=== PATIENT | male | born 1955 | race Caucasian/White ===

== ENCOUNTER 2016-12-22 17:15 | Outpatient (CLI) ==
[2013-05-13 01:09] VITALS: TEMP 97.2
[2015-10-17 08:59] VITALS: BMI 22.9
--- NOTE | 2016-12-22 17:49 | DI ---
Examination: Two radiographic images of the chest. Comparison: 08/01/2011. Reason for study: Chronic obstructive pulmonary disease and cough. FINDINGS: No pneumothorax, pleural effusion, or focal consolidation. The heart is not enlarged. T here is mild degenerative disease in the thoracic spine. Impression: No acute cardiopulmonary findings.
== END 2016-12-22 17:16 | disposition home or self-care (01) ==
LOC: RAD 17:15
PROVIDERS: ATTEND Internal Medicine
DX: J44.9 Chronic obstructive pulmonary disease, unspecified (principal); R05 Cough

== ENCOUNTER 2017-01-05 07:01 | Emergency (ER) ==
[2017-01-05 07:11] VITALS: BP 145/88; TEMP 98; BMI 26.6
[2017-01-05] MEDS ORDERED: TETRACAINE 0.5% UNIT-DOSE OP STA (07:15)
[2017-01-05] MEDS ORDERED: EYE-STREAM OP STA (07:15)
--- NOTE | 2017-01-05 07:24 | ED.PDOC ---
General ED Provider: Dr. PONCHO CRENSHAW Chief Complaint: Eye Problem Stated Complaint: Patient states that while he was grinding metal 2 days ago, he felt like a piece of metal got into left eye. He now eyelid red and painful with sensitivty to light. Time Seen by Physician: 07:16 Mode of Arrival: Walk-In Information Source: Patient Exam Limitations: No limitations Primary Care Provider: OSCAR MOHAMUD Nursing and Triage Documentation Reviewed and Agree: Yes EENT Complaint Exam - Eye Complaint/Exam Onset/Duration: 2 days Symptoms Are: Still present Timing: Constant Initial Severity: Moderate Current Severity: Severe Location: Right Character: Reports: Sharp, Throbbing, Foreign body sensation Aggravating: Reports: Light Alleviating: Reports: None Associated Signs and Symptoms: Reports: Photophobia, Clear drainage Related History: Reports: Environmental Eye Surgical History: Reports: None Penetrating Injury Risk Factors: Grinding Globe Rupture Risk Factors: None Acute Glaucoma Risk Factors: None Optic Artery Occlusion Risk Factors: None Visual Acuity Right Eye: 20/30 Visual Acuity Left Eye: 20/25 Visual Field: Normal Extraocular Movement: Normal Orbit Findings: Normal Globe Findings: Intact Lid Findings: Normal Conjunctival Findings: Red Corneal Findings: Clear Fluorescein Uptake: Yes (3 o'clock position area of foreing body removeal ) Slit Lamp Used: No Eye Picture: 1 - metalic foriegn body removed Differential Diagnoses: Foreign Body Review of Systems - Review Of Systems Constitutional: Reports: No symptoms Eyes: Reports: Blurred vision, Drainage, Foreign body sensation Ears, Nose, Mouth, Throat: Reports: No symptoms Respiratory: Reports: No symptoms Cardiac: Reports: No symptoms GI: Reports: No symptoms : Reports: No symptoms Musculoskeletal: Reports: No symptoms Skin: Reports: No symptoms Neurological: Reports: No symptoms Endocrine: Reports: No symptoms Hematologic/Lymphatic: Reports: No symptoms All Other Systems: Reviewed and Negative Past Medical History - Past Medical History Endocrine: Reports: None Cardiovascular: Reports: None Respiratory: Reports: None Hematological: Reports: None Gastrointestinal: Reports: None Genitourinary: Reports: None Neuro/Psych: Reports: None Musculoskeletal: Reports: Arthritis, Back Pain Cancer: Reports: None Other Pertinent Past Medical History: Back, Arthritis, Herniated disc. - Surgical History General Surgical History: Reports: Appendectomy - Family History Family History: Reports: None - Social History Smoking Status: Current every day smoker, Heavy tobacco smoker Hx Substance Use: No Alcohol Screening: None Physical Exam - Physical Exam Appearance: Ill-appearing Ill-appearing: Mild Pain Distress: Moderate Eyes: AMY, EOMI, Conjunctiva clear (left ), Conjunctiva inflammed (on the right ) Neck: Supple Respiratory: Airway patent, Breath sounds clear, Breath sounds equal, Respirations nonlabored Cardiovascular: RRR, Pulses normal, No rub, No murmur GI/: Soft, Nontender, No masses, Bowel sounds normal, No Organomegaly Musculoskeletal: Normal strength, ROM intact, No edema, No calf tenderness Skin: Warm Neurological: Sensation intact, Motor intact, Reflexes intact, Cranial nerves intact, Alert, Oriented Psychiatric: Affect appropriate, Mood appropriate Procedures - Eye Procedure Location of Foreign Body: right eye Tetracaine Drops Administered: Yes (2 ) Eye FB Removal: Removed with cotton swab, Removed with needle Depth: Imbedded Foreign Body Completely Removed: Yes Eye Irrigated: Yes Progress: Tolerated procedure well Critical Care Note - Critical Care Note Total Time (mins): 0 Course - Course Orders, Labs, Meds: Orders Category Date Time Status Balanced Salt Solution [Eye-Stream] MEDS 01/05/17 07:15 Stat 1 bottle OP ONCE STA Tetracaine HCl/Pf [Tetracaine 0.5% Unit-Dose] MEDS 01/05/17 07:15 Stat 2 drop OP ONCE STA Medications Discontinued Medications Generic Name Dose Route Start Last Admin Trade Name Memo PRN Reason Stop Dose Admin Eye Irrigation Solution 1 bottle 01/05/17 07:15 Eye-Stream OP 01/05/17 07:16 ONCE STA Tetracaine HCl 2 drop 01/05/17 07:15 Tetracaine 0.5% Unit-Dose OP 01/05/17 07:16 ONCE STA Vital Signs: Temp Pulse Resp BP Pulse Ox 01/05/17 07:02 98 F 90 20 145/88 H 92 L Departure - Departure Time of Disposition: 07:32 Disposition: HOME SELF-CARE Discharge Problem: Foreign body of right eye Qualifiers: Encounter type: initial encounter Qualifier Code: (T15.91XA) Foreign body on external eye, part unspecified, right eye, initial encounter Instructions: Eye Foreign Body (ED) Condition: Good Pt referred to PMD for follow-up: No Additional Instructions: Take Motrin or Tylenol as needed for pain. Follow up with the EYE doctor in 1-2 days for reevaluation. Use eye drops as prescribed Return worse. 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
[2017-01-05] MEDS ORDERED: FLUORETS OP STA (07:46)
== END 2017-01-05 07:49 | disposition home or self-care (01) ==
LOC: ED 07:01
DX: T15.91XA Foreign body on external eye, part unspecified, right eye, initial encounter (principal); W45.8XXA Other foreign body or object entering through skin, initial encounter; W20.8XXA Other cause of strike by thrown, projected or falling object, initial encounter; F17.210 Nicotine dependence, cigarettes, uncomplicated
CPT/HCPCS: 99283

== ENCOUNTER 2018-03-03 16:22 | Emergency (ER) | payer OTHER ==
[2018-03-03 16:26] VITALS: BP 134/83; TEMP 96.8; BMI 25.1
[2018-03-03] MEDS ORDERED: LIDOCAINE HCL 1% SDV SUBCUT STA (16:44)
[2018-03-03] MEDS ORDERED: TENIVAC IM ONE (16:45)
--- NOTE | 2018-03-03 16:58 | ED.PDOC ---
General ED Provider: Dr. DAREK KABA Chief Complaint: Hand Laceration Stated Complaint: right hand laceration Time Seen by Physician: 16:22 Mode of Arrival: Walk-In Information Source: Patient Exam Limitations: No limitations Primary Care Provider: OSCAR MOHAMUD Nursing and Triage Documentation Reviewed and Agree: Yes Reviewed sepsis parameters & appropriate labs ordered?: No System Inflammatory Response Syndrome: Not Applicable Sepsis Protocol: For patient's 13 years and over: Temp is 96.8 and below OR 101 and greater Pulse >90 BPM Resp >20/minute Acutely Altered Mental Status Are patient's symptoms suggestive of a new infection, such as: -Pneumonia -Skin, Soft Tissue -Endocarditis -UTI -Bone, Joint Infection -Implantable Device -Acute Abdominal Infection -Wound Infection -Meningitis -Blood Stream Catheter Infection -Unknown System Inflammatory Response Syndrome: Not Applicable Skin Complaint Exam - Lac/Torso/Upper Ext. Complaint/Exam Location of Injury: Right (hand) Mechanism of Injury: Laceration Onset/Duration: 30 min ago Symptoms Are: Still present Initial Severity: Mild Current Severity: Mild Aggravating: None Alleviating: None Associated Signs and Symptoms: Denies: Fever, Chills, Erythema, Numbness, Tingling Related History: Denies: Anticoagulant use Differential Diagnoses: Laceration Review of Systems - Review Of Systems Constitutional: Reports: No symptoms Eyes: Reports: No symptoms Ears, Nose, Mouth, Throat: Reports: No symptoms Respiratory: Reports: No symptoms Cardiac: Reports: No symptoms GI: Reports: No symptoms : Reports: No symptoms Musculoskeletal: Reports: No symptoms Skin: Reports: Other (laceration hand see photos) Neurological: Reports: No symptoms Endocrine: Reports: No symptoms Hematologic/Lymphatic: Reports: No symptoms All Other Systems: Reviewed and Negative Past Medical History - Past Medical History Previously Healthy: Yes Endocrine: Reports: None Cardiovascular: Reports: None Respiratory: Reports: None Hematological: Reports: None Gastrointestinal: Reports: None Genitourinary: Reports: None Neuro/Psych: Reports: None Musculoskeletal: Reports: Arthritis, Back Pain Cancer: Reports: None Other Pertinent Past Medical History: Back, Arthritis, Herniated disc. - Surgical History General Surgical History: Reports: Appendectomy - Family History Family History: Reports: None - Social History Smoking Status: Current every day smoker, Heavy tobacco smoker Hx Substance Use: No Alcohol Screening: None - Immunizations Tetanus Shot up to Date: No Physical Exam - Physical Exam Appearance: Well-appearing, No pain distress, Well-nourished Eyes: AMY, EOMI, Conjunctiva clear ENT: Ears normal, Nose normal, Oropharynx normal Respiratory: Airway patent, Breath sounds clear, Breath sounds equal, Respirations nonlabored Cardiovascular: RRR, Pulses normal, No rub, No murmur GI/: Soft, Nontender, No masses, Bowel sounds normal, No Organomegaly Musculoskeletal: Normal strength, ROM intact, No edema, No calf tenderness Skin: Warm, Dry (laceration right hand see photos) Neurological: Sensation intact, Motor intact, Reflexes intact, Cranial nerves intact, Alert, Oriented Psychiatric: Affect appropriate, Mood appropriate Procedures - Laceration/Wound Repair No standard instances Wound Description: Linear Wound Length (cm): 4 cm Wound Width: 1 mm Wound Depth: 2mm Wound Explored: Clean Wound Irrigated: No Wound Prep: Saline Anesthesia: Lidocaine Wound Debrided: Minimal Wound Repaired With: Sutures Suture Size and Type: 8 Number of Sutures: 1 Number of Noe: 0 Critical Care Note - Critical Care Note Total Time (mins): 0 Course - Course Orders, Labs, Meds: Orders Category Date Time Status Lidocaine HCl/Pf [Lidocaine HCl 1% Sdv] MEDS 03/03/18 16:44 Stat 5 ml SUBCUT ONCE STA Tetanus and Diphtheria Tox/Pf [Tenivac] MEDS 03/03/18 16:45 Once 0.5 ml IM .ONCE ONE Medications Discontinued Medications Generic Name Dose Route Start Last Admin Trade Name Freq PRN Reason Stop Dose Admin Lidocaine HCl 5 ml 03/03/18 16:44 03/03/18 16:49 Lidocaine Hcl 1% Sdv SUBCUT 03/03/18 16:45 5 ml ONCE STA Administration Tetanus/Diphtheria Toxoids Adsorbed 0.5 ml 03/03/18 16:45 Tenivac IM 03/03/18 16:46 .ONCE ONE Vital Signs: Temp Pulse Resp BP Pulse Ox 03/03/18 16:22 96.8 F L 93 H 18 134/83 93 L Departure - Departure Time of Disposition: 16:57 Disposition: HOME SELF-CARE Discharge Problem: Hand laceration Qualifiers: Encounter type: initial encounter Foreign body presence: without foreign body Laterality: right Qualified Code(s): S61.411A - Laceration without foreign body of right hand, initial encounter Instructions: Laceration (ED) Condition: Good Pt referred to PMD for follow-up: Yes IPMP verified?: No Allergies/Adverse Reactions: Allergies No Known Allergies Allergy (Verified 03/03/18 16:26) Home Medications: Ambulatory Orders Cholesterol Pill mg PO DAILY 03/03/18
== END 2018-03-03 17:16 | disposition home or self-care (01) ==
LOC: ED 16:22
DX: S61.411A Laceration without foreign body of right hand, initial encounter (principal); W45.8XXA Other foreign body or object entering through skin, initial encounter; F17.210 Nicotine dependence, cigarettes, uncomplicated
CPT/HCPCS: 90471; 90714; 99283

== ENCOUNTER 2018-05-21 06:37 | Outpatient (CLI) | payer OTHER ==
[2013-05-13 01:09] VITALS: TEMP 97.2
--- NOTE | 2018-05-21 09:56 | DI ---
EXAM: PA and lateral views of the chest HISTORY: Smoking history with chronic obstructive pulmonary disease COMPARISON: Chest x-ray 12/22/2016 and 08/01/2011 FINDINGS: The cardiomediastinal silhouette is normal. There is no pneumothorax or pleural effusion. The lungs are mildly hyperinflated. There is no consolidation, nodule or mass. The osseous struct ures are stable with multilevel degenerative change. IMPRESSION: Hyperinflated lungs suggestive of chronic obstructive pulmonary disease with no acute co nsolidation.
--- NOTE | 2018-05-22 12:34 | ECHO2D ---
Date of Exam: 05/21/18 Ordering Physician: DR. OSCAR MOHAMUD Room #: OP Reason for Echo: SOB, DILATED AORTIC ROOT, HYPOKINETIC LEFT VENTRICLE M-Mode Normal Adult Results LV Dimensions Normal Adult Results AoV Opening excursions >1.6 >1.6 LVEDD-base- 3.5-5.8 5.1 Ao root dimensions 2.0-3.7 4.4 LVESD-base- 3.1-4.6 L. Atrium dimensions 1.9-3.8 3.3 Post. Wall thickness 0.8-1.1 1.4 IV septum (thickness) 0.7-1.2 1.3 Post. Wall excursion 0.72-1.3 NORMAL Septal motion NORMAL Systolic motion R. Ventricular cavity 1.5-2.0 NORMAL LVEF 60% 58% Paradoxical septal wall motion NORMAL 2-D : 2-D M Mode Echocardiogram was performed using apical four chamber and left parasternal long and short axis views. Mitral, tricuspid and aortic valves appear to be normal. Contractility of the left ventricle seems to be normal, so is the cavity size. Left atrial cavity size appears to be normal. Dilated aortic root. There is no pericardial effusion. There is no thrombus noted in the left ventricular or left aortic cavity. No mitral valve prolapse noted. Color Flow: Mild to moderate aortic regurgitation M-MODE: MV: NORMAL AV: NORMAL TV: NORMAL PV: CHAMBER SIZE: NORMAL WALL MOTION: NORMAL PERICARDIUM: NORMAL INTERPRETATION: 1. DILATED AORTIC ROOT 2. LEFT VENTRICULAR HYPERTROPHY 3. NORMAL LEFT VENTRICULAR CONTRACTILITY 4. MILD TO MODERATE AORTIC REGURGITATION MTDD
== END 2018-05-21 06:38 | disposition home or self-care (01) ==
LOC: CAR 06:37
PROVIDERS: ATTEND Internal Medicine
DX: R06.02 Shortness of breath (principal); I50.1 Left ventricular failure, unspecified; I77.819 Aortic ectasia, unspecified site; J44.9 Chronic obstructive pulmonary disease, unspecified; Z87.891 Personal history of nicotine dependence

== ENCOUNTER 2022-06-10 13:23 | Inpatient (IN) ==
[2022-06-10] MEDS ORDERED: VENTOLIN HFA (PER PUFF-WITH SPACER) IH ONE (13:38)
[2022-06-10] MEDS ORDERED: SOLU-MEDROL 125 MG IM ONE (13:38)
--- NOTE | 2022-06-10 13:43 | ED.PDOC ---
General ED Provider: Dr. GALA FINK MD Chief Complaint: Cough Stated Complaint: mild to mod off and on dry cough for 2 days, no fever, +aches, no rash, hx smoking and pneumonia, no hx covid vaccine or RI or dm Time Seen by Provider: 06/10/22 13:28 Mode of Arrival: Walk-In Information Source: Patient Primary Care Provider: OSCAR MOHAMUD Nursing and Triage Documentation Reviewed and Agree: Yes Does patient meet sepsis criteria?: No System Inflammatory Response Syndrome: Not Applicable Sepsis Protocol: For patient's 13 years and over: Temp is 96.8 and below OR 101 and greater Pulse >90 BPM Resp >20/minute Acutely Altered Mental Status Are patient's symptoms suggestive of a new infection, such as: -Pneumonia -Skin, Soft Tissue -Endocarditis -UTI -Bone, Joint Infection -Implantable Device -Acute Abdominal Infection -Wound Infection -Meningitis -Blood Stream Catheter Infection -Unknown Review of Systems Review Of Systems Constitutional: Reports Malaise; Denies Fever Eyes: Denies Vision change Ears, Nose, Mouth, Throat: Denies Throat pain Respiratory: Reports Cough and Short of air; Denies Stridor Cardiac: Denies Chest pain GI: Denies Abdominal pain or Vomiting : Denies Dysuria Musculoskeletal: Denies Neck pain Skin: Denies Rash or Cyanosis Neurological: Denies Cognitive dysfunction All Other Systems: [facility] Social History Smoking and tobacco status: Current every day smoker Physical Exam Physical Exam Appearance: Reports No pain distress Ill-appearing: None Pain Distress: None Eyes: Reports AMY, EOMI and Conjunctiva clear ENT: Reports Oropharynx normal Neck: Supple Respiratory: Reports Airway patent and Wheezes Cardiovascular: Reports RRR GI/: Reports Soft and Nontender Musculoskeletal: Reports ROM intact Skin: Reports Warm and Dry Neurological: Reports Alert and Oriented Psychiatric: Reports Affect appropriate Interpretation Radiology Interpretation Radiology Interpretation By: Radiologist Radiology Results: No acute changes Exam Interpreted: CXR EKG Interpretation Time of EKG #1: 14:57 Rate: Normal Rhythm: Sinus Interpretation: no stemi Critical Care Note Critical Care Note Total Critical Care Time (mins): 0 Course Course Hematology/Chemistry: 06/10/22 13:52 06/10/22 13:52 Orders, Labs, Meds: Lab Review 06/10/22 06/10/22 06/10/22 13:30 13:30 13:52 WBC 11.03 H RBC 4.69 L Hgb 14.2 Hct 44.0 MCV 93.8 MCH 30.3 MCHC 32.3 RDW Coeff of Petar 13.6 Plt Count 274 Immature Gran % (Auto) 0.4 Neut % (Auto) 75.1 Lymph % (Auto) 13.2 [place] % (Auto) 10.4 H Eos % (Auto) 0.7 Baso % (Auto) 0.2 Neut # (Auto) 8.3 H Lymph # (Auto) 1.5 [place] # (Auto) 1.2 Eos # (Auto) 0.1 Baso # (Auto) 0.0 Immature Gran # (Auto) 0.0 Puncture Site Base Excess O2 Saturation ABG pH ABG pCO2 ABG pO2 ABG HCO3 ABG Total CO2 Domenico Test Hemoglobin Oxyhemoglobin Carboxyhemoglobin Total Hemoglobin FiO2 % Sodium Potassium Chloride Carbon Dioxide Anion Gap BUN Creatinine Estimated GFR (MDRD) BUN/Creatinine Ratio Glucose Lactic Acid Calcium Total Bilirubin AST ALT Alkaline Phosphatase Total Creatine Kinase Troponin I NT-Pro-B Natriuret Pep Total Protein Albumin Globulin Albumin/Globulin Ratio Influ A Molecular Assay Negative by naat Influ B Molecular Assay Negative by naat SARS CoV-2 RNA Rapid EDWIN Negative 06/10/22 06/10/22 06/10/22 13:52 13:52 14:00 WBC RBC Hgb Hct MCV MCH MCHC RDW Coeff of Petar Plt Count Immature Gran % (Auto) Neut % (Auto) Lymph % (Auto) [place] % (Auto) Eos % (Auto) Baso % (Auto) Neut # (Auto) Lymph # (Auto) [place] # (Auto) Eos # (Auto) Baso # (Auto) Immature Gran # (Auto) Puncture Site Rr Base Excess 6.6 H O2 Saturation 89.3 L ABG pH 7.42 ABG pCO2 48.0 H ABG pO2 56.0 L* ABG HCO3 31.1 H ABG Total CO2 32.6 H Domenico Test Pos Hemoglobin 1.1 Oxyhemoglobin 87.6 L Carboxyhemoglobin 4.8 H Total Hemoglobin 14.4 FiO2 % 21.0 Sodium 140.6 Potassium 4.73 Chloride 102.6 Carbon Dioxide 33.5 H Anion Gap 9.23 BUN 14.3 Creatinine 0.86 Estimated GFR (MDRD) 89.00 BUN/Creatinine Ratio 16.62 Glucose 95.6 Lactic Acid 0.90 Calcium 9.12 Total Bilirubin 0.24 AST 20.0 ALT 12.3 Alkaline Phosphatase 92.3 Total Creatine Kinase 51.7 L Troponin I < 0.012 NT-Pro-B Natriuret Pep 41.000 Total Protein 7.22 Albumin 3.87 Globulin 3.35 Albumin/Globulin Ratio 1.15 Influ A Molecular Assay Influ B Molecular Assay SARS CoV-2 RNA Rapid EDWIN Orders Category Date Time Status ABG DRAW REQUEST Stat CARDIO 06/10/22 13:38 Completed EKG-(ED ONLY) Stat CARDIO 06/10/22 13:38 Completed METERED DOSE INHALATION Routine CARDIO 06/10/22 13:39 Completed OXYGEN [ED APPLY O2] .ONCE EMERGENCY 06/10/22 13:38 Active ABG COOX Stat LAB 06/10/22 14:00 Completed CBC W/ AUTO DIFF Stat LAB 06/10/22 13:52 Completed CMP [COMPREHENSIVE METABOLIC PANEL] Stat LAB 06/10/22 13:52 Completed CREATINE KINASE Stat LAB 06/10/22 13:52 Completed LACTIC ACID Stat LAB 06/10/22 13:52 Completed MOLECULAR FLU A & B [FLU A/B MOLECULAR] Stat LAB 06/10/22 13:30 Completed NT-PROBNP Stat LAB 06/10/22 13:52 Completed RAPID STREP SCREEN [MOLECULAR GROUP A STREP] Stat LAB 06/10/22 13:30 Completed SARS COV-2 RNA RAPID EDWIN Stat LAB 06/10/22 13:30 Completed TROPONIN I Stat LAB 06/10/22 13:52 Completed Albuterol Inhaler(with Spacer) [Ventolin Hfa (Per Puff- MEDS 06/10/22 13:38 Discontinued with Spacer)] 2 puff IH ONCE ONE Methylprednisolone Sod Succ/Pf [Solu-Medrol 125 mg] MEDS 06/10/22 13:38 Discontinued 125 mg IM ONCE ONE CHEST, 1V AP ONLY Stat RADS 06/10/22 14:11 Completed Medications Discontinued Medications Generic Name Dose Route Start Last Admin Trade Name Freq PRN Reason Stop Dose Admin Albuterol Sulfate 2 puff 06/10/22 13:38 06/10/22 14:18 Albuterol Sulfate (Ventolin Hfa) 18 Gm 1 Puff With Spacer IH 06/10/22 13:39 2 puff ONCE ONE Administration Methylprednisolone Sodium Succinate 125 mg 06/10/22 13:38 06/10/22 13:47 Methylprednisolone Sod Succ/Pf 125 Mg/2 Ml Vial IM 06/10/22 13:39 125 mg ONCE ONE Administration Vital Signs: Temp Pulse Resp BP Pulse Ox 06/10/22 13:26 98 F 93 H 20 122/73 86 L Discharge Plan Discharge Patient Disposition: ADMITTED INPATIENT Discharge Problem: COPD exacerbation Prescriptions: No Action atorvastatin 80 mg tablet 80 mg PO DAILY Label Comments: TAKE 1 TABLET BY MOUTH EVERY DAY Did you review [place] [employer]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
[2022-06-10 13:57] LABS: BASOPHILS % (AUTO) 0.2 % (0.0-3.0); EOSINOPHILS # (AUTO) 0.1 K/ul (0.0-0.7); EOSINOPHILS % (AUTO) 0.7 % (0.0-7.0); HEMOGLOBIN 14.2 g/dl (14.0-18.0); IMMATURE GRANULOCYTE % (AUTO) 0.4 % (0.0-5.0); LYMPHOCYTES # (AUTO) 1.5 K/uL (0.60-3.4); LYMPHOCYTES % (AUTO) 13.2 (10.0-50.0); MEAN CORPUSCULAR HEMOGLOBIN 30.3 pg (27.0-31.0); MEAN CORPUSCULAR HGB CONC 32.3 (31.8-35.4); MEAN CORPUSCULAR VOLUME 93.8 fl (80.0-94.0); MONOCYTES # (AUTO) 1.2 K/uL (0.4-2.0); MONOCYTES % (AUTO) 10.4 (0-10); NEUTROPHILS # (AUTO) 8.3 K/ul (2.0-6.9); NEUTROPHILS % (AUTO) 75.1 % (42.2-75.2); PLATELET COUNT 274 10^3/uL (140-440); RDW COEFFICIENT OF VARIATION 13.6 % (11.6-14.8); RED BLOOD COUNT 4.69 10^6/ul (4.70-6.10); WHITE BLOOD COUNT 11.03 K/ul (4.2-10.2)
[2022-06-10 14:10] LABS: ALANINE AMINOTRANSFERASE 12.3 U/L (0-50); ALBUMIN 3.87 g/dL (3.5-5.0); ALKALINE PHOSPHATASE 92.3 U/L (56-119); BILIRUBIN,TOTAL 0.24 mg/dL (0.2-1.3); BLOOD UREA NITROGEN 14.3 mg/dL (9-20); CALCIUM 9.12 mg/dL (8.4-10.2); CARBON DIOXIDE 33.5 mmol/L (22-30.0); CHLORIDE 102.6 mmol/L (98-107); CREATINE KINASE 51.7 U/L (55-170); CREATININE 0.86 mg/dL (0.60-1.10); GLUCOSE 95.6 mg/dL (74-106); POTASSIUM 4.73 mmol/L (3.5-5.1); SODIUM 140.6 mmol/L (134.5-145); TOTAL PROTEIN 7.22 g/dL (6.3-8.2)
[2022-06-10 14:27] LABS: ABG O2 HGB 87.6 % (95-100); ABG PH 7.42 (7.35-7.45); BEecf 6.6 (-2.0-3.0); COHb 4.8 (0.5-1.5); HCO3 31.1 (21-28); MetHb 1.1 (0-1.5); TCO2 32.6 (19-24); sO2 89.3 % (94-98); tHb 14.4 g/dl (11.7-17.4)
[2022-06-10 14:28] LABS: TROPONIN I < 0.012 ng/ml (0.0000-0.120)
[2022-06-10 14:30] LABS: MOLECULAR FLU A NEGATIVE BY NAAT (NEGATIVE); MOLECULAR FLU B NEGATIVE BY NAAT (NEGATIVE)
--- NOTE | 2022-06-10 14:40 | DI ---
EXAM: Chest, one-view HISTORY: Cough FINDINGS: Cardiac and mediastinal contours are normal. Pulmonary vasculature is normal. The lungs are hyperexpanded. Lungs are clear. Bony thorax is unremarkable. IMPRESSION: No acute cardiopulmonary disease Chronic obstructive pulmonary disease
[2022-06-10] MEDS: SODIUM CHLORIDE 1,000 ML IV SCH (15:35)
[2022-06-10] MEDS ORDERED: NORCO 7.5-325 PO PRN (15:54)
[2022-06-10 15:56] VITALS: BMI 22.6
[2022-06-10] MEDS ORDERED: ROCEPHIN 1 GM/50 ML D5W 1 GM/50 ML BAG IV ONE (16:43)
[2022-06-10] MEDS: DUONEB NEB SCH ×2 (17:07→23:05)
[2022-06-11] MEDS: SOLU-MEDROL 40 MG IVP SCH ×3 (00:41→22:27)
[2022-06-11] MEDS: DUONEB NEB SCH ×4 (04:55→23:15)
[2022-06-11 05:19] LABS: BASOPHILS % (AUTO) 0.1 % (0.0-3.0); HEMATOCRIT 39.9 % (42.0-52.0); HEMOGLOBIN 13.1 g/dl (14.0-18.0); IMMATURE GRANULOCYTE % (AUTO) 0.5 % (0.0-5.0); LYMPHOCYTES # (AUTO) 0.5 K/uL (0.60-3.4); MEAN CORPUSCULAR HEMOGLOBIN 30.5 pg (27.0-31.0); MEAN CORPUSCULAR HGB CONC 32.8 (31.8-35.4); MONOCYTES # (AUTO) 0.1 K/uL (0.4-2.0); MONOCYTES % (AUTO) 1.7 (0-10); NEUTROPHILS # (AUTO) 7.7 K/ul (2.0-6.9); NEUTROPHILS % (AUTO) 91.7 % (42.2-75.2); PLATELET COUNT 280 10^3/uL (140-440); RDW COEFFICIENT OF VARIATION 13.7 % (11.6-14.8); RED BLOOD COUNT 4.29 10^6/ul (4.70-6.10)
[2022-06-11 05:31] LABS: ALANINE AMINOTRANSFERASE 13.3 U/L (0-50); ALBUMIN 3.58 g/dL (3.5-5.0); ALKALINE PHOSPHATASE 82.5 U/L (56-119); CALCIUM 9.01 mg/dL (8.4-10.2); CARBON DIOXIDE 29.6 mmol/L (22-30.0); CHLORIDE 105.9 mmol/L (98-107); CREATININE 0.76 mg/dL (0.60-1.10); GLUCOSE 135.1 mg/dL (74-106); POTASSIUM 4.54 mmol/L (3.5-5.1); SODIUM 140.4 mmol/L (134.5-145); TOTAL PROTEIN 6.63 g/dL (6.3-8.2)
[2022-06-11 05:34] LABS: BILIRUBIN,TOTAL < 0.10 mg/dL (0.2-1.3)
[2022-06-11] MEDS: SODIUM CHLORIDE 1,000 ML IV SCH (05:48)
[2022-06-11] MEDS ORDERED: LEVAQUIN 750 MG/150 ML D5W 750 MG/150 ML BAG IV SCH (09:00)
--- NOTE | 2022-06-11 09:16 | PCM.PROG ---
Attending Provider: ATTENDING PROVIDER: Dr. OSCAR MOHAMUD This patient is seen with Rere Grover, Nurse Practitioner. DATE OF SERVICE: 06/11/22 SUBJECTIVE: This 66 year old /WHITE M was hospitalized 06/10/22. States he is feeling better this morning. Sating 96% on 2 liters. No fever. Blood pressure is low. Productive cough with yellow sputum.Reports had fever and chills early in the week and got progressively more short of breath. REVIEW OF SYSTEMS: CONSTITUTIONAL: No night sweats. No fatigue, malaise, lethargy. No fever or chills. HEENT: Eyes: No visual changes. No eye pain. No eye discharge. ENT: No runny nose. No epistaxis. No sinus pain. No odynophagia. No congestion. RESPIRATORY: Cough, no congestion. No hemoptysis. Shortness of breath. CARDIOVASCULAR: No angina symptoms. No CHF symptoms. No atypical chest pain for CAD. No palpitations. No orthopnea.. GASTROINTESTINAL: No abdominal pain. No nausea or vomiting. No diarrhea or constipation. No hematemesis. No hematochezia. GENITOURINARY: No urgency. No frequency. No dysuria. No hematuria. No obstruc tive symptoms. No discharge. No pain. No significant abnormal bleeding. MUSCULOSKELETAL: No musculoskeletal pain; no joint swelling. NEUROLOGICAL: Awake, alert, oriented to time, place and person. No headache. No neck pain. No syncope. No seizures. No dizziness. PSYCHIATRIC: Not anxious. No depression. No suicidal thoughts. No homicidal thoughts. SKIN: No rash. No lesions. No wounds. ENDOCRINE: No unexplained weight loss. No weight gain. HEMATOLOGIC/LYMPHATIC: No anemia. No purpura. No petechiae. No prolonged or excessive bleeding. No palpable lymph nodes. PHYSICAL EXAMINATION: GENERAL: The patient is awake, alert and oriented, sitting in bed in no distress. VITAL SIGNS: Temperature 97.9 F, Pulse 84, Respiratory Rate 16, BP 88/49, Pulse Ox 96% HEENT: Head normocephalic, atraumatic. Eyes: Extraocular muscles are intact. Pupils are equal, round and reactive to light and accommodation. Ears: No lesions. Nose appeared normal. Throat: No exudate or erythema. NECK: Supple. No JVD, no carotid bruit. No lymphadenopathy or thyromegaly. LUNGS: Severely diminished breath sounds. Clear to auscultation. Percussion note normal. Chest symmetrical. HEART: S1, S2, no S3. No murmurs. No cyanosis or clubbing. No ascites. Pulses: Dorsalis pedis and posterior tibial pulses +1 to +2 both sides. ABDOMEN: Soft. Non-tender. Bowel sounds active. No CVA tenderness. No mass felt. EXTREMITIES: No edema. Full range of motion of all extremities, equal. NEUROLOGIC: No focal deficit. Cranial nerves II through XII are grossly intact. No headache. No double vision. SKIN: Not dry. Intact. Turgor-normal. LYMPHATIC: No palpable lymph nodes/no lymphedema. MUSCULOSKELETAL: Normal joints with no swelling. Muscle tone is normal. LAB REVIEW: 06/11/22 04:50 06/11/22 04:50 06/11/22 04:50: Sodium 140.4, Potassium 4.54, Chloride 105.9, Carbon Dioxide 29.6, Anion Gap 9.44, BUN 19.0, Creatinine 0.76, Estimated GFR (MDRD) 102.00, BUN/Creatinine Ratio 25.00, Glucose 135.1 H, Calcium 9.01, Total Bilirubin < 0.10 L, AST 19.0, ALT 13.3, Alkaline Phosphatase 82.5, Total Protein 6.63, Albumin 3.58, Globulin 3.05, Albumin/Globulin Ratio 1.17 06/11/22 04:50: WBC 8.40, RBC 4.29 L, Hgb 13.1 L, Hct 39.9 L, MCV 93.0, MCH 30.5, MCHC 32.8, RDW Coeff of Petar 13.7, Plt Count 280, Immature Gran % (Auto) 0 .5, Neut % (Auto) 91.7 H, Lymph % (Auto) 6.0 L, [place] % (Auto) 1.7, Eos % (Auto) 0.0, Baso % (Auto) 0.1, Neut # (Auto) 7.7 H, Lymph # (Auto) 0.5 L, [place] # (Auto) 0.1 L, Eos # (Auto) 0.0, Baso # (Auto) 0.0, Immature Gran # (Auto) 0.0 06/11/22 04:50: Troponin I < 0.012 06/10/22 21:50: Troponin I < 0.012 06/10/22 14:00: Puncture Site Rr, Base Excess 6.6 H, O2 Saturation 89.3 L, ABG pH 7.42, ABG pCO2 48.0 H, ABG pO2 56.0 L*, ABG HCO3 31.1 H, ABG Total CO2 32.6 H , Domenico Test Pos, Hemoglobin 1.1, Oxyhemoglobin 87.6 L, Carboxyhemoglobin 4.8 H, Total Hemoglobin 14.4, FiO2 % 21.0 06/10/22 13:52: Lactic Acid 0.90 06/10/22 13:52: Sodium 140.6, Potassium 4.73, Chloride 102.6, Carbon Dioxide 33.5 H, Anion Gap 9.23, BUN 14.3, Creatinine 0.86, Estimated GFR (MDRD) 89.00, BUN/Creatinine Ratio 16.62, Glucose 95.6, Calcium 9.12, Total Bilirubin 0.24, AST 20.0, ALT 12.3, Alkaline Phosphatase 92.3, Total Creatine Kinase 51.7 L, Troponin I < 0.012, NT-Pro-B Natriuret Pep 41.000, Total Protein 7.22, Albumin 3.87, Globulin 3.35, Albumin/Globulin Ratio 1.15 06/10/22 13:52: WBC 11.03 H, RBC 4.69 L, Hgb 14.2, Hct 44.0, MCV 93.8, MCH 30.3, MCHC 32.3, RDW Coeff of Petar 13.6, Plt Count 274, Immature Gran % (Auto) 0.4, Neut % (Auto) 75.1, Lymph % (Auto) 13.2, [place] % (Auto) 10.4 H, Eos % (Auto) 0.7, Baso % (Auto) 0.2, Neut # (Auto) 8.3 H, Lymph # (Auto) 1.5, [place] # (Auto) 1.2, Eos # (Auto) 0.1, Baso # (Auto) 0.0, Immature Gran # (Auto) 0.0 06/10/22 13:30: Influ A Molecular Assay Negative by naat, Influ B Molecular Assay Negative by naat 06/10/22 13:30: SARS CoV-2 RNA Rapid EDWIN Negative ASSESSMENT: Please see below. 1. Acute respiratory failure 2. Acute COPD exacerbation 3. Hypotension 4. Dyslipidemia 5. Heavy smoker PLAN: 1. CT chest with and without 2. Respiratory panel for shortness of breath 3. Sputum Culture 4. Levaquin 500mg IV daily 5. Change Solu-Medrol 100mg Q 8 hours. 6. Repeat ABG on room air in the morning 7. Urinalysis 8. 2D echo Plan and coordination of the patient's care discussed in the presence of Electrical Cad Technician and nurse. SCRIBED BY: Bert HARPER scribed while in presence of service performed by Dr. Mohamud/Rere Grover APRN on 06/11/22 ([id number])
[2022-06-11 10:00] LABS: ABG PH 7.37 (7.35-7.45); BEecf 0.7 (-2.0-3.0); COHb 2.3 (0.5-1.5); MetHb 1.5 (0-1.5); TCO2 27.4 (19-24); sO2 87.2 % (94-98); tHb 13.4 g/dl (11.7-17.4)
[2022-06-11] MEDS: SOLU-MEDROL 125 MG IVP SCH ×3 (10:37→21:13)
[2022-06-11] MEDS: NICODERM 21 MG TD SCH (10:40)
[2022-06-11] MEDS: LEVAQUIN 500 MG/100 ML D5W 500 MG/100 ML BAG IV SCH (10:43)
[2022-06-11] MEDS: LIPITOR PO SCH (10:43)
--- NOTE | 2022-06-11 10:52 | CT ---
EXAM: Noncontrast chest CT HISTORY: Short of air, chronic obstructive pulmonary disease, evaluate for pneumonia COMPARISON: 06/10/2022 chest x-ray, 08/07/2021 CT TECHNIQUE: Axial noncontrast CT of the chest with sagittal and coronal reformats. FINDINGS: A few adjacent right upper lobe pulmonary nodules identified with the largest measuring 0.3 cm on axi al image 22, new compared to the prior exam. A few adjacent sub-centimeter right lower lobe pulmonar y nodules are also identified, new compared to a prior exam. There is mild interval increase in the posterior right upper lobe since or scarring. Mild emphysematous changes are seen. No pleural effus ion or pneumothorax is identified. The heart is mildly enlarged. Atherosclerotic calcifications are present including coronary arteries the ascending aorta is mildly ectatic measuring 4.1 cm, stable compared to the prior exam. A 1.3 cm pretracheal lymph node is noted, stable compared to the prior exam. Hepatic probable cysts are seen. No suspicious osseous lesions identified. IMPRESSION: Right middle lobe and right upper lobe adjacent sub-centimeter nodular densities, new compared to the prior exam. This is favored to be infectious or inflammatory, however follow-up in 6 months is brianne mmended. Mild increase in the posterior superior right upper lobe probable atelectasis or scarring. Attention on followup imaging is recommended. Mild emphysema. Atherosclerosis including coronary arteries. Mild cardiomegaly. All CT scans are performed using dose optimization techniques as appropriate to the performed exam an d include at least one of the following: Automated exposure control, adjustment of the mA and/or kV according t o size, and the use of iterative reconstruction technique.
[2022-06-11 12:58] LABS: BORDETELLA PARAPERTUSSIS (PCR) NOT DETECTED (NOT DETECT); BORDETELLA PERTUSSIS (PCR) NOT DETECTED (NOT DETECT); CHLAMYDIA PNEUMONIAE (PCR) NOT DETECTED (NOT DETECT); CORONAVIRUS 229E (PCR) NOT DETECTED (NOT DETECT); CORONAVIRUS HKU1 (PCR) NOT DETECTED (NOT DETECT); CORONAVIRUS NL63 (PCR) NOT DETECTED (NOT DETECT); CORONAVIRUS OC43 (PCR) NOT DETECTED (NOT DETECT); HUMAN METAPNEUMOVIRUS (PCR) NOT DETECTED (NOT DETECT); HUMAN RHINOVIRUS/ENTEROV (PCR) NOT DETECTED (NOT DETECT); INFLUENZA B (PCR) NOT DETECTED (NOT DETECT); MYCOPLASMA PNEUMONIAE (PCR) NOT DETECTED (NOT DETECT); PARAINFLUENZA VIRUS 1 (PCR) NOT DETECTED (NOT DETECT); PARAINFLUENZA VIRUS 2 (PCR) NOT DETECTED (NOT DETECT); PARAINFLUENZA VIRUS 3 (PCR) NOT DETECTED (NOT DETECT); PARAINFLUENZA VIRUS 4 (PCR) NOT DETECTED (NOT DETECT); RESPIRATORY SYNCYTIAL V (PCR) NOT DETECTED (NOT DETECT); SARS_COV_2 (PCR) NOT DETECTED (NOT DETECT)
[2022-06-11 13:46] LABS: ADENOVIRUS (PCR) NOT DETECTED (NOT DETECT)
[2022-06-11 15:20] LABS: BILIRUBIN,URINE Negative (NEGATIVE); CLARITY,URINE Clear (CLEAR); COLOR,URINE Yellow (YELLOW); GLUCOSE, URINE (UA) Trace (NEGATIVE); KETONES,URINE Negative (NEGATIVE); LEUKOCYTE ESTERASE ,URINE Negative (NEGATIVE); NITRITE,URINE Negative (NEGATIVE); PROTEIN,URINE Negative (NEGATIVE); URINE, BLOOD Negative (NEGATIVE); UROBILINOGEN,URINE 0.2 (0.2)
[2022-06-12] MEDS: SOLU-MEDROL 125 MG IVP SCH ×3 (05:20→21:50)
[2022-06-12] MEDS: DUONEB NEB SCH ×3 (05:25→17:07)
[2022-06-12 05:37] LABS: BASOPHILS % (AUTO) 0.1 % (0.0-3.0); HEMATOCRIT 37.1 % (42.0-52.0); HEMOGLOBIN 12.1 g/dl (14.0-18.0); IMMATURE GRANULOCYTE # (AUTO) 0.1 (0.0-1.0); IMMATURE GRANULOCYTE % (AUTO) 0.6 % (0.0-5.0); LYMPHOCYTES # (AUTO) 0.6 K/uL (0.60-3.4); MEAN CORPUSCULAR HEMOGLOBIN 30.8 pg (27.0-31.0); MEAN CORPUSCULAR HGB CONC 32.6 (31.8-35.4); MEAN CORPUSCULAR VOLUME 94.4 fl (80.0-94.0); MONOCYTES # (AUTO) 0.7 K/uL (0.4-2.0); MONOCYTES % (AUTO) 3.7 (0-10); NEUTROPHILS # (AUTO) 17.1 K/ul (2.0-6.9); NEUTROPHILS % (AUTO) 92.6 % (42.2-75.2); PLATELET COUNT 293 10^3/uL (140-440); RDW COEFFICIENT OF VARIATION 14.2 % (11.6-14.8); RED BLOOD COUNT 3.93 10^6/ul (4.70-6.10); WHITE BLOOD COUNT 18.47 K/ul (4.2-10.2)
[2022-06-12 05:54] LABS: ALANINE AMINOTRANSFERASE 18.2 U/L (0-50); ALKALINE PHOSPHATASE 70.2 U/L (56-119); ASPARTATE AMINO TRANSFERASE 24.3 U/L (17-59); BLOOD UREA NITROGEN 20.5 mg/dL (9-20); CARBON DIOXIDE 27.4 mmol/L (22-30.0); CHLORIDE 105.3 mmol/L (98-107); GLUCOSE 133.6 mg/dL (74-106); POTASSIUM 4.74 mmol/L (3.5-5.1)
[2022-06-12 05:55] LABS: BILIRUBIN,TOTAL < 0.10 mg/dL (0.2-1.3)
[2022-06-12 06:28] LABS: ABG O2 HGB 90.3 % (95-100); ABG PH 7.38 (7.35-7.45); BEecf 2.1 (-2.0-3.0); COHb 2.5 (0.5-1.5); HCO3 27.2 (21-28); MetHb 1.7 (0-1.5); TCO2 28.6 (19-24); sO2 90.1 % (94-98)
[2022-06-12] MEDS: LIPITOR PO SCH (09:15)
[2022-06-12] MEDS: LEVAQUIN 500 MG/100 ML D5W 500 MG/100 ML BAG IV SCH (09:15)
--- NOTE | 2022-06-12 09:15 | PCM.PROG ---
Attending Provider: ATTENDING PROVIDER: Dr. OSCAR MOHAMUD This patient is seen with Rere Grover, Nurse Practitioner. DATE OF SERVICE: 06/12/22 SUBJECTIVE: This 66 year old /WHITE M was hospitalized 06/10/22. Feeling improved. CT of the chest was abnormal showing infectious nodules. ABG is slightly better this morning, worse yesterday. Agrees to stay one more day. REVIEW OF SYSTEMS: CONSTITUTIONAL: No night sweats. No fatigue, malaise, lethargy. No fever or chills. HEENT: Eyes: No visual changes. No eye pain. No eye discharge. ENT: No runny nose. No epistaxis. No sinus pain. No odynophagia. No congestion. RESPIRATORY: Cough, no congestion. No hemoptysis. Shortness of breath. CARDIOVASCULAR: No angina symptoms. No CHF symptoms. No atypical chest pain for CAD. No palpitations. No orthopnea.. GASTROINTESTINAL: No abdominal pain. No nausea or vomiting. No diarrhea or constipation. No hematemesis. No hematochezia. GENITOURINARY: No urgency. No frequency. No dysuria. No hematuria. No obstructive symptoms. No discharge. No pain. No significant abnormal bleeding. MUSCULOSKELETAL: No musculoskeletal pain; no joint swelling. NEUROLOGICAL: Awake, alert, oriented to time, place and person. No headache. No neck pain. No syncope. No seizures. No dizziness. PSYCHIATRIC: Not anxious. No depression. No suicidal thoughts. No homicidal thoughts. SKIN: No rash. No lesions. No wounds. ENDOCRINE: No unexplained weight loss. No weight gain. HEMATOLOGIC/LYMPHATIC: No anemia. No purpura. No petechiae. No prolonged or excessive bleeding. No palpable lymph nodes. PHYSICAL EXAMINATION: GENERAL: The patient is awake, alert and oriented, sitting in bed in no distress. VITAL SIGNS: Temperature 97.1 F, Pulse 71, Respiratory Rate 18, BP 114/66, Pulse Ox 93% HEENT: Head normocephalic, atraumatic. Eyes: Extraocular muscles are intact. Pupils are equal, round and reactive to light and accommodation. Ears: No lesions. Nose appeared normal. Throat: No exudate or erythema. NECK: Supple. No JVD, no carotid bruit. No lymphadenopathy or thyromegaly. LUNGS: Diminished breath sounds. Rales on left middle lobe. Clear to auscultation. Percussion note normal. Chest symmetrical. HEART: S1, S2, no S3. No murmurs. No cyanosis or clubbing. No ascites. Pulses: Dorsalis pedis and posterior tibial pulses +1 to +2 both sides. ABDOMEN: Soft. Non-tender. Bowel sounds active. No CVA tenderness. No mass felt. EXTREMITIES: No edema. Full range of motion of all extremities, equal. NEUROLOGIC: No focal deficit. Cranial nerves II through XII are grossly intact. No headache. No double vision. SKIN: Not dry. Intact. Turgor-normal. LYMPHATIC: No palpable lymph nodes/no lymphedema. MUSCULOSKELETAL: Normal joints with no swelling. Muscle tone is normal. LAB REVIEW: 06/12/22 04:45 06/12/22 04:45 06/12/22 06:15: Puncture Site Rad, Base Excess 2.1, O2 Saturation 90.1 L, ABG pH 7.38, ABG pCO2 46.0 H, ABG pO2 60.0 L, ABG HCO3 27.2, ABG Total CO2 28.6 H, Domenico Test Pos, Hemoglobin 1.7 H, Oxyhemoglobin 90.3 L, Carboxyhemoglobin 2.5 H, Total Hemoglobin 13.0 06/12/22 04:45: Sodium 140.0, Potassium 4.74, Chloride 105.3, Carbon Dioxide 27.4, Anion Gap 12.04, BUN 20.5 H, Creatinine 0.70, Estimated GFR (MDRD) 112.00, BUN/Creatinine Ratio 29.28, Glucose 133.6 H, Calcium 9.10, Total Bilirubin < 0.10 L, AST 24.3, ALT 18.2, Alkaline Phosphatase 70.2, Total Protein 6.30, Albumin 3.40 L, Globulin 2.90, Albumin/Globulin Ratio 1.17 06/12/22 04:45: WBC 18.47 H D, RBC 3.93 L, Hgb 12.1 L, Hct 37.1 L, MCV 94.4 H, MCH 30.8, MCHC 32.6, RDW Coeff of Petar 14.2, Plt Count 293, Immature Gran % (Auto) 0.6, Neut % (Auto) 92.6 H, Lymph % (Auto) 3.0 L, [place] % (Auto) 3.7, Eos % (Auto) 0.0, Baso % (Auto) 0.1, Neut # (Auto) 17.1 H, Lymph # (Auto) 0.6, [place] # (Auto) 0.7, Eos # (Auto) 0.0, Baso # (Auto) 0.0, Immature Gran # (Auto) 0.1 06/11/22 13:15: Urine Color Yellow, Urine Clarity Clear, Urine pH 6.0, Ur Specific [place] >=1.030, Urine Protein Negative, Urine Glucose (UA) Trace H, Urine Ketones Negative, Urine Blood Negative, Urine Nitrite Negative, Urine Bilirubin Negative, Urine Urobilinogen 0.2, Ur Leukocyte Esterase Negative 06/11/22 12:25: Adenovirus (PCR) Not detected, B. pertussis DNA (PCR) Not detected, B.parapertussis DNA PCR Not detected, C. pneumoniae DNA (PCR) Not detected, Coronavirus OC43 (PCR) Not detected, Coronavirus HKU1 (PCR) Not detected, Coronavirus 229E (PCR) Not detected, Coronavirus NL63 (PCR) Not detected, Human Metapneumovir PCR Not detected, Influenza Type A (PCR) Not detected, Influenza B (RT-PCR) Not detected, M. pneumoniae (PCR) Not detected, Parainfluenza 1 (PCR) Not detected, Parainfluenza 2 (PCR) Not detected, Parainfluenza 3 (PCR) Not detected, Parainfluenza 4 (PCR) Not detected, RSV (PCR) Not detected, Entero/Rhino (PCR) Not detected, SARS-CoV-2 (PCR) Not detected 06/11/22 09:51: Puncture Site R brach, Base Excess 0.7, O2 Saturation 87.2 L, ABG pH 7.37, ABG pCO2 45.0, ABG pO2 55.0 L*, ABG HCO3 26.0, ABG Total CO2 27.4 H , Domenico Test Y, Hemoglobin 1.5, Oxyhemoglobin 88.0 L, Carboxyhemoglobin 2.3 H, Total Hemoglobin 13.4, FiO2 % 21.0 ASSESSMENT: Please see below. 1. Bilateral pneumonia 2. Acute respiratory failure 3. COPD PLAN: 1. Continue IV antibiotics 2. The patient is adamant about going home tomorrow 3. He will be discharge on Levaquin and Prednisone tomorrow. Plan and coordination of the patient's care discussed in the presence of Exhibitor [employer] and nurse. SCRIBED BY: JODIE JEFFERY Ramp Service Man scribed while in presence of service performed by Dr. Mohamud/Rere Grover APRN on 06/12/22 ([id number])
[2022-06-12] MEDS: NICODERM 21 MG TD SCH (13:48)
[2022-06-12 21:51] VITALS: TEMP 97.9
[2022-06-13] MEDS: DUONEB NEB SCH ×3 (00:02→13:58)
[2022-06-13 05:17] VITALS: BP 113/70
[2022-06-13] MEDS: SOLU-MEDROL 125 MG IVP SCH (05:21)
[2022-06-13] MEDS: LIPITOR PO SCH (08:26)
[2022-06-13] MEDS: NICODERM 21 MG TD SCH (08:27)
[2022-06-13] MEDS: LEVAQUIN 500 MG/100 ML D5W 500 MG/100 ML BAG IV SCH (08:28)
--- NOTE | 2022-06-13 08:35 | HP ---
DATE OF SERVICE: 06/10/22 REASON FOR HOSPITALIZATION/HISTORY OF PRESENT ILLNESS: 66 year old white male who presents to the emergency room cough and shortness of breath. He reports that earlier in the week he had chills, low grade fever and body aches. He is a heavy smoker. He is not COVID vaccinated. PAST MEDICAL HISTORY: History of aortic dissection Lumbar radiculopathy Bilateral sciatica Elevated PSA, see Dr. Ariza History of pyelonephritis with nephrolithiasis Dyslipidemia Hyperglycemia Heavy Smoker COPD Dilated aortic root Aortic regurgitation History of skull fracture from fall Back pain Degenerative disc disease of the spine Noncompliant with diet, life style and medication. Dyslipidemia Chronic back pain PAST SURGICAL HISTORY: The patient had an aortic dissection descending thoracic aorta partially dissected and repaired by Dr. Lawson in 2018 [facility] 09/29 REVIEW OF SYSTEMS: CONSTITUTIONAL: No night sweats. No fatigue, malaise, lethargy. No fever or chills. HEENT: Eyes: No visual changes. No eye pain. No eye discharge. ENT: No runny nose. No epistaxis. No sinus pain. No sore throat. No odynophagia. No ear pain. No congestion. RESPIRATORY: Cough, no congestion. No hemoptysis. Shortness of breath. CARDIOVASCULAR: No angina symptoms. No CHF symptoms. No atypical chest pain for CAD. No palpitations. No PND. No orthopnea. GASTROINTESTINAL: No abdominal pain. No nausea or vomiting. No diarrhea or constipation. No hematemesis. No hematochezia. GENITOURINARY: No urgency. No frequency. No dysuria. No hematuria. No obstructive symptoms. No discharge. No pain. No significant abnormal bleeding. MUSCULOSKELETAL: No musculoskeletal pain. No joint swelling. No arthritis. NEUROLOGICAL: No headache. No neck pain. No syncope. No seizures. No dizziness. PSYCHIATRIC: Not anxious. No depression. No suicidal thoughts. No homicidal thoughts. SKIN: No rash. No lesions. No wounds. ENDOCRINE: No unexplained weight loss. No weight gain. HEMATOLOGIC/LYMPHATIC: No anemia. No purpura. No petechiae. No prolonged or excessive bleeding. No palpable lymph nodes. PERSONAL/FAMILY/SOCIAL HISTORY: He is , heavy smoker. No alcohol or illicit drug use. Still works full- time. Performs all ADLs. Not vaccinated for COVID. MEDICATIONS: Atorvastatin 80mg PO Bedtime Hydrocodone-acetaminophen 7.5-325mg PO bedtime PRN ALLERGIES: No known allergies. PHYSICAL EXAMINATION: GENERAL: The patient is alert and oriented. VITAL SIGNS: Temperature 98, heart rate 93, respiratory rate 20, blood pressure 122/73 and pulse ox 86% on room air. HEENT: Head normocephalic, atraumatic. Eyes: Extraocular muscles are intact. Pupils are equal, round and reactive to light and accommodation. Ears: No lesions. Nose appeared normal. Throat: No exudate or erythema. NECK: Supple. No JVD, no carotid bruit. No lymphadenopathy or thyromegaly. LUNGS: Severely diminished breath sounds bilaterally. Clear to auscultation. Percussion note normal. Chest symmetrical. HEART: S1, S2, no S3. No murmur. No cyanosis or clubbing. No ascites. Pulses: Dorsalis pedis and posterior tibial pulses +1 to +2 bilaterally. ABDOMEN: Soft. Nontender. Bowel sounds active. No CVA tenderness. No mass felt. EXTREMITIES: No edema. Full range of motion of all extremities, equal. NEUROLOGIC: No focal deficit. Cranial nerves II through XII are grossly intact. No headache, no double vision or headache. SKIN: Not dry. Intact. Turgor - normal. LYMPHATIC: No palpable lymph nodes/no lymphedema. MUSCULOSKELETAL: Normal joints with no swelling. Muscle tone is normal. LABS: WBC 11,000, hgb 14.2, hct 44, plt count 274, chest x-ray shows no acute disease, COPD. Sodium 140, potassium 4.7, BUN 14, creatinine 0.86, AST 20, ALT 12. ABG on room air, pH 7.42, pCO2 48, pO2 56, bicarb 31.1, O2 saturation 89%. Lactic acid 0.9, COVID PCR was negative. Rapid flu negative. Strep was negative. Troponin less than 0.012. ASSESSMENT: 1. Acute respiratory failure 2. Acute COPD exacerbation 3. Dyslipidemia 4. COPD 5. Heavy smoker PLAN: 1. We will admit 2. Routine telemetry orders 3. CBC and CMP daily 4. Normal saline IV at 75cc an hour 5. Solu-Medrol 100mg IV Q 8 hours 6. Albuterol TID scheduled 7. Pulmicort NEB 1mg BID 8. Levaquin 500mg IV daily 9. CT chest with and without 10. 2D echo 11. Continue home medications 12. oxygen at 2 liters 13. Repeat ABGs after an hour 14. Blood cultures times two 15. Sputum culture 16. U/A 17. Respiratory panel by PCR 18. Will follow closely. TIME SPENT: More than 70 minutes. MTDD
[2022-06-13] MEDS ORDERED: NORCO 7.5-325 PO PRN (12:22)
--- NOTE | 2022-06-13 14:26 | PN ---
DATE OF SERVICE: 06/12/22 SUBJECTIVE: The patient is doing well. Pneumonia seems to be resolving. Continue antibiotics, steroids. We will do echocardiogram before discharge. Possible day of discharge maybe tomorrow. The patient was seen and examined with the Nurse Practitioner. TIME SPENT: More than 30 minutes. Plan and coordination of the patient's care discussed in the presence of nurse. ARMANDO
--- NOTE | 2022-06-14 09:15 | ECHO2D ---
Date of Exam: 06/13/2022 Ordering Physician: DR. OSCAR MOHAMUD Room #: 105 Reason for Echo: SOB, COPD, SMOKING, PNEUMONIA M-Mode Normal Adult Results LV Dimensions Normal Adult Results AoV Opening excursions >1.6 >1.6 LVEDD-base- 3.5-5.8 5.0 Ao root dimensions 2.0-3.7 4.2 LVESD-base- 3.1-4.6 L. Atrium dimensions 1.9-3.8 4.3 Post. Wall thickness 0.8-1.1 1.1 IV septum (thickness) 0.7-1.2 1.2 Post. Wall excursion 0.72-1.3 NORMAL Septal motion NORMAL Systolic motion R. Ventricular cavity 1.5-2.0 5.1 LVEF 60% 53% Paradoxical septal wall motion NORMAL 2-D : 2-D M Mode Echocardiogram was performed using apical four chamber and left parasternal long and short axis views. Mitral, tricuspid and aortic valves appear to be normal. Contractility of the left ventricle seems to be normal, so is the cavity size. Aortic root appears to be normal. There is no pericardial effusion. There is no thrombus noted in the left ventricle or left atrial cavity. ENLARGED RIGHT VENTRICLE AND LEFT ATRIAL CAVITIES COLOR FLOW: MODERATE AORTIC REGURGITATION M-MODE: MV: NORMAL AV: NORMAL TV: NORMAL PV: NORMAL CHAMBER SIZE: ENLARGED LEFT ATRIAL AND RIGHT VENTRICLE CAVITIES, DILATED AORTIC ROOT WALL MOTION: NORMAL PERICARDIUM: NORMAL INTERPRETATION: 1. LEFT VENTRICLE HYPERTROPHY 2. ENLARGED LEFT ATRIAL CAVITY AND RIGHT VENTRICLE CAVITY 3. DILATED AORTIC ROOT 4. NORMAL VALVES AND LEFT VENTRICLE CONTRACTILITY MTDD
--- NOTE | 2022-06-15 09:43 | PN ---
DATE OF SERVICE: 06/10/22 SUBJECTIVE: The patient was seen and examined in the ER and later on hospitalized. The patient had acute respiratory failure with pO2 56, pCO2 normal and pH and saturation 87%. He has cough and congestion, exacerbation of COPD, heavy smoker, noncompliant of lifestyle. The patient is going to be hospitalized with IV steroids, antibiotics Levaquin and NEBS treatment. The patient is so far COVID negative. CONDITION: Stable. TIME SPENT: More than 30 minutes. Plan and coordination of the patient's care discussed in the presence of nurse. ARMANDO
[2022-06-18 13:10] LABS: BACTERIA IDENTIFICATION Final report (.)
--- NOTE | 2022-06-27 08:01 | PN ---
DATE OF SERVICE: 06/12/22 SUBJECTIVE: The patient was seen and examined with the Nurse Practitioner. The patient's condition is improving. Up and about. Oxygen saturation more than 90% even with walking doesn't qualify for oxygen. Counseling for smoking done. TIME SPENT: More than 30 minutes. Plan and coordination of the patient's care discussed in the presence of nurse. ARMANDO
--- NOTE | 2022-06-27 13:08 | PN ---
DATE OF SERVICE: 06/13/22 SUBJECTIVE: 66 year old white male hospitalized with COPD exacerbation and pneumonitis. The patient's condition has improved. His oxygen saturation is 97% and he doesn't even qualify for any home oxygen. He is up and about feeling better. REVIEW OF SYSTEMS: CONSTITUTIONAL: No night sweats. No fatigue, malaise, lethargy. No fever or chills. HEENT: Eyes: No visual changes. No eye pain. No eye discharge. ENT: No runny nose. No epistaxis. No sinus pain. No sore throat. No odynophagia. No congestion. RESPIRATORY: No cough, no congestion. No hemoptysis. No shortness of breath. CARDIOVASCULAR: No angina symptoms. No CHF symptoms. No atypical chest pain for CAD. No palpitations. No PND. No orthopnea. GASTROINTESTINAL: No abdominal pain. No nausea or vomiting. No diarrhea or constipation. No hematemesis. No hematochezia. GENITOURINARY: No urgency. No frequency. No dysuria. No hematuria. No obstructive symptoms. No discharge. No pain. No significant abnormal bleeding. MUSCULOSKELETAL: No musculoskeletal pain; no joint swelling. NEUROLOGICAL: No headache. No neck pain. No syncope. No seizures. No dizziness. PSYCHIATRIC: Not anxious. No depression. No suicidal thoughts. No homicidal thoughts. SKIN: No rash. No lesions. No wounds. ENDOCRINE: No unexplained weight loss. No weight gain. HEMATOLOGIC/LYMPHATIC: No anemia. No purpura. No petechiae. No prolonged or excessive bleeding. No palpable lymph nodes. PHYSICAL EXAMINATION: VITAL SIGNS: Temperature 97.9, pulse 73, respiratory rate 16, blood pressure 113/70 and pulse ox 97% on room air. HEENT: Head normocephalic, atraumatic. Eyes: Extraocular muscles are intact. Pupils are equal, round and reactive to light and accommodation. Ears: No lesions. Nose appeared normal. Throat: No exudate or erythema. NECK: Supple. No JVD, no carotid bruit. No lymphadenopathy or thyromegaly. LUNGS: Decreased breath sounds but clear to auscultation. Percussion note normal. Chest symmetrical. HEART: S1, S2, no S3. No murmurs. No cyanosis or clubbing. No ascites. Pulses: Dorsalis pedis and posterior tibial pulses +1 to +2 bilaterally. ABDOMEN: Soft. Nontender. Bowel sounds active. No CVA tenderness. No mass felt. EXTREMITIES: No edema. Full range of motion of all extremities, equal. NEUROLOGIC: No focal deficit. Cranial nerves II through XII are grossly intact. No headache. No double vision. SKIN: Not dry. Intact. Turgor - normal. LYMPHATIC: No palpable lymph nodes/no lymphedema. MUSCULOSKELETAL: Normal joints with no swelling. Muscle tone is normal. LABS: Hgb 12.1, hct 37, WBC 18,000 normal differential, creatinine 0.7, BUN 20, potassium 4.7. ASSESSMENT: 1. Acute pneumonitis with severe bronchitis with severe chronic lung disease with respiratory failure has resolved 2. Chronic lung disease, stable. The patient says that he has quit smoking now. I explained to him about patches and how to get them over the counter. PLAN: 1. The patient is going to be discharged on Levaquin, steroids 2. He is advised to continue the rest of the medications as before. 3. Counseling for smoking done 4. Echocardiogram was done which showed enlarged RV cavity, normal LV cavity size and normal LV contractility with normal valvular structures. AR was noted which was moderate. 5. The patient is to be followed in 5-7 days. CONDITION AT DISCHARGE: Stable. TIME SPENT: More than 30 minutes. Plan and coordination of the patient's care discussed in the presence of nurse. ARMANDO
--- NOTE | 2022-06-27 13:21 | DS ---
DATE OF SERVICE: 06/13/22 FINAL DIAGNOSIS: 1. Acute pneumonitis with severe chronic lung disease with bronchitis 2. Respiratory failure secondary to #1 3. Severe chronic lung disease from heavy smoking 4. Generalized osteoarthritis 5. Dyslipidemia DISCHARGE INSTRUCTIONS: Discharge home. MEDICATIONS AT DISCHARGE: Atorvastatin 18mg PO at bedtime Hydrocodone 7.5 one at bedtime NEW PRESCRIPTIONS: Albuterol inhaler PRN as needed Levofloxacin 500mg PO BID for 7 days Prednisone 20mg PO daily for 7 days after that 10mg one a day for 5 days HOSPITAL COURSE: 66 year old white male was hospitalized with acute respiratory failure with pO2 of 55,pCO2 45 and pH 7.37 with 87% saturation on room air. The patient was aggressively treated with IV steroids, NEBS, antibiotics Levaquin. The patient's condition improved within 2-3 days. Up and about and feeling a lot better. Echo showed normal LV contractility, increased RV size, moderate AR otherwise normal LC contractility with normal ejection fraction was noted. The patient was strongly advised to quit smoking. He agreed that he is going to try the nicotine patch as an outpatient. He is on tapering dose of Prednisone. Side effects of Prednisone were discussed with him. Condition at the time of discharge is stable. At the time of discharge the patient's hgb was 12.1, hct 37. Creatinine 0.7, BUN 20 with potassium 4.7. The patient's oxygen saturation was 97% on room air. He was checked out for home oxygen, three step test which was negative. He did not qualify for oxygen. In any case the patient's condition at the time of discharge is stable. TIME SPENT: More than 60 minutes. The patient is DNI. MTDD
--- NOTE | 2022-06-27 13:22 | PN ---
ADMISSION DAY: Level 5 Rest of them: Intermediate FINAL DAY: D as in discharge MTDD
== END 2022-06-13 12:05 | disposition home or self-care (01) | DRG 196 ==
LOC: MEDSURG A 13:23 → ED 13:23 → MEDSURG A 15:46
PROVIDERS: ADMIT Internal Medicine; ATTEND Internal Medicine
DX: J20.9 Acute bronchitis, unspecified; Z28.310 Unvaccinated for COVID-19; Z51.81 Encounter for therapeutic drug level monitoring; Z20.822 Contact with and (suspected) exposure to COVID-19; J96.01 Acute respiratory failure with hypoxia; Z71.6 Tobacco abuse counseling; E78.5 Hyperlipidemia, unspecified; F17.210 Nicotine dependence, cigarettes, uncomplicated; J84.114 Acute interstitial pneumonitis; M15.9 Polyosteoarthritis, unspecified; Z91.19 Patient's noncompliance with other medical treatment and regimen; Z79.899 Other long term (current) drug therapy; J44.1 Chronic obstructive pulmonary disease with (acute) exacerbation

== ENCOUNTER 2023-05-04 20:22 | Observation (INO) ==
[2023-05-04 20:34] VITALS: BMI 23.2
[2023-05-04] MEDS ORDERED: DUONEB NEB ONE (20:48)
[2023-05-04 21:06] LABS: BILIRUBIN,URINE 2+ (NEGATIVE); CLARITY,URINE Clear (CLEAR); COLOR,URINE Yellow (YELLOW); GLUCOSE, URINE (UA) Negative (NEGATIVE); KETONES,URINE 4+ (NEGATIVE); LEUKOCYTE ESTERASE ,URINE Negative (NEGATIVE); NITRITE,URINE Negative (NEGATIVE); PROTEIN,URINE 2+ (NEGATIVE); URINE, BLOOD 1+ (NEGATIVE)
--- NOTE | 2023-05-04 21:06 | DI ---
EXAM: TWO-VIEW CHEST RADIOGRAPH. HISTORY: Shortness of breath.. COMPARISON: 06/10/2022. FINDINGS: The heart is normal in size. Pulmonary vascularity is within normal limits. No focal airs pace opacity, pneumothorax, or pleural effusion is seen. Mild multilevel degenerative disc disease i s present in the mid and lower thoracic spine IMPRESSION: No acute cardiopulmonary findings.
[2023-05-04 21:09] LABS: AMORPHOUS SEDIMENT,UR TRACE (NOT PRESENT); BACTERIA,URINE TRACE (NOT PRESENT); SQUAMOUS EPITHELIAL CELL,UR 0-2 (0-5); URINE RBC, MICROSCOPIC 0-2 (0-2); URINE WBC, MICROSCOPIC 0-2 (0-2)
[2023-05-04 21:36] LABS: ABG O2 HGB 86.1 % (95-100); ABG PH 7.45 (7.35-7.45); BEecf 1.7 (-2.0-3.0); COHb 3.5 (0.5-1.5); HCO3 25.7 (21-28); MetHb 1.3 (0-1.5); TCO2 26.8 (19-24); sO2 86.9 % (94-98); tHb 14.2 g/dl (11.7-17.4)
[2023-05-04 21:37] LABS: BASOPHILS % (AUTO) 0.2 % (0.0-3.0); EOSINOPHILS % (AUTO) 0.1 % (0.0-7.0); HEMOGLOBIN 13.9 g/dl (14.0-18.0); IMMATURE GRANULOCYTE # (AUTO) 0.1 (0.0-1.0); IMMATURE GRANULOCYTE % (AUTO) 0.6 % (0.0-5.0); LYMPHOCYTES # (AUTO) 0.9 K/uL (0.60-3.4); MEAN CORPUSCULAR HEMOGLOBIN 30.7 pg (27.0-31.0); MEAN CORPUSCULAR HGB CONC 33.1 (31.8-35.4); MEAN CORPUSCULAR VOLUME 92.7 fl (80.0-94.0); MONOCYTES # (AUTO) 2.3 K/uL (0.4-2.0); NEUTROPHILS # (AUTO) 14.5 K/ul (2.0-6.9); NEUTROPHILS % (AUTO) 81.1 % (42.2-75.2); PLATELET COUNT 266 10^3/uL (140-440); RDW COEFFICIENT OF VARIATION 14.1 % (11.6-14.8); RED BLOOD COUNT 4.53 10^6/ul (4.70-6.10); WHITE BLOOD COUNT 17.85 K/ul (4.2-10.2)
[2023-05-04 21:48] LABS: SARS COV-2 RNA RAPID NAAT NEGATIVE (NEGATIVE)
[2023-05-04 21:49] LABS: ALANINE AMINOTRANSFERASE 16.9 U/L (0-50); ALBUMIN 3.96 g/dL (3.5-5.0); ALKALINE PHOSPHATASE 124.8 U/L (56-119); ASPARTATE AMINO TRANSFERASE 21.8 U/L (17-59); BILIRUBIN,TOTAL 0.65 mg/dL (0.2-1.3); BLOOD UREA NITROGEN 23.1 mg/dL (9-20); CALCIUM 9.32 mg/dL (8.4-10.2); CHLORIDE 105.2 mmol/L (98-107); CREATININE 0.81 mg/dL (0.60-1.10); POTASSIUM 4.39 mmol/L (3.5-5.1); SODIUM 140.7 mmol/L (134.5-145); TOTAL PROTEIN 7.35 g/dL (6.3-8.2)
[2023-05-04 22:02] LABS: TROPONIN I < 0.012 ng/ml (0.0000-0.120)
[2023-05-04] MEDS ORDERED: SODIUM CHLORIDE 1,000 ML IV STA ×2 (22:23→22:26)
[2023-05-04] MEDS ORDERED: ZOSYN 3.375 GM 3.375 GM in SODIUM CHLORIDE 100ML 100 ML IV ONE (22:24)
[2023-05-04] MEDS ORDERED: VANCOMYCIN 1.5 GRAM/300 ML PREMIX 1.5 GM/300 ML BAG IV ONE (23:06)
--- NOTE | 2023-05-04 23:54 | ED.PDOC ---
General ED Provider: Dr. MAXINE HYMAN MD Chief Complaint: Weakness Stated Complaint: generalized weakness; decreased appetite, fever, chills Time Seen by Provider: 05/04/23 21:16 Mode of Arrival: Walk-In Information Source: Patient Exam Limitations: No limitations Primary Care Provider: OSCAR RENDON MD Nursing and Triage Documentation Reviewed and Agree: Yes Does patient meet sepsis criteria?: Yes If yes, has appropriate treatment been initiated?: Yes System Inflammatory Response Syndrome: Pulse >90 BPM and Resp >20/Minute Sepsis Protocol: For patient's 13 years and over: Temp is 96.8 and below OR 101 and greater Pulse >90 BPM Resp >20/minute Acutely Altered Mental Status Are patient's symptoms suggestive of a new infection, such as: -Pneumonia -Skin, Soft Tissue -Endocarditis -UTI -Bone, Joint Infection -Implantable Device -Acute Abdominal Infection -Wound Infection -Meningitis -Blood Stream Catheter Infection -Unknown Miscellaneous Complaint Exam Febrile Illness/Adult Complaint/Exam Onset/Duration: three days ago Symptoms Are: Still present Timing: Constant Highest Temperature Recorded: never checked temperature Initial Severity: Moderate Current Severity: Moderate Aggravating: Reports None Alleviating: Reports None Associated Signs and Symptoms: Reports Chills; Denies Headache, Short of air, Cough, Sore throat, Nausea, Vomiting, Diaphoresis, Dysuria, Arthralgia, Stiff neck, Myalgia, Rash or Altered mental status Pseudomonas Risk Factors: Reports Chronic Lung Disease Serious Bacterial Infection Risk Factors: Reports None Current Antibiotic Use: No Related Surgical History: None Specific Findings: Absent Meningeal signs, Diaphoresis, Joint swelling, Erythema, Cellulitis, Petechiae or CVA tenderness Differential Diagnoses: Abdominal Infection, Bacteremia, Cellulitis, Endocar ditis, Fever of Unknown Origin, GI Disease, Neoplasm, Pneumonia and Sepsis Quality Indicators For Pneumonia/CAP: Blood Cultures-SCU admit, Antibiotics in 6hr-admit, SpO2 assessed, Vital signs and Mental status assessed Quality Indicator For Non-Traumatic Chest Pain/Syncope: EKG Performed Patient Advised to Stop Smoking: Yes Review of Systems Review Of Systems Constitutional: Reports Chills, Fever, Weakness and Loss of appetite; Denies Diaphoresis, Malaise or Sweats Eyes: Reports No symptoms Ears, Nose, Mouth, Throat: Reports No symptoms Respiratory: Reports No symptoms Cardiac: Reports No symptoms GI: Reports No symptoms : Reports No symptoms Musculoskeletal: Reports No symptoms Skin: Reports No symptoms Neurological: Reports Weakness (generalized weakness) Endocrine: Reports No symptoms Hematologic/Lymphatic: Reports No symptoms All Other Systems: Reviewed and Negative [facility] Medical History (Updated 05/05/23 @ 06:08 by MAXINE HYMAN MD) Aortic dissection I71.00 - Dissection of unspecified site of aorta (ICD-10) COPD (chronic obstructive pulmonary disease) J44.9 - Chronic obstructive pulmonary disease, unspecified (ICD-10) Elevated cholesterol E78.00 - Pure hypercholesterolemia, unspecified (ICD-10) Hypoglycemia E16.2 - Hypoglycemia, unspecified (ICD-10) Kidney tumor D49.519 - Neoplasm of unspecified behavior of unspecified kidney (ICD-10) Family History FATHER Cancer BROTHER Cancer Social History Smoking and tobacco status: Current every day smoker Tobacco type: cigarettes Smoking packs per day: 2 Smoking cigarettes per day: 40.0 Years smoked: 54 Smoking pack-years: 108.00 Quit status: not considering quitting Second hand smoke exposure: No Smoking risk assessment performed: No Alcohol intake: never Substance use type: does not use Special villa needs: No Agree to transfusion: Yes Adopted: No Caregiver/support person: No Foster care: No Household members: spouse Housing: house Marital status: M Lives independently: Yes Number of children: 1 service: No correction: No Current occupational status: retired History of recent travel: No Do you think of yourself as: straight/heterosexual Current gender identity: male Seatbelt use: always Helmet use: No Drives intoxicated or rides with intoxicated parts delivery driver: No Water heater temperature set < 120 degrees: Yes Working smoke detector in home: Yes Fire extinguisher in home: Yes Carbon monoxide detector in home: Yes Surgical History History of prostate surgery Z98.890 - Other specified postprocedural states (ICD-10) Physical Exam Physical Exam Appearance: Reports Ill-appearing Ill-appearing: Mild Pain Distress: None Eyes: Reports AMY, EOMI and Conjunctiva clear ENT: Reports Ears normal, Nose normal and Oropharynx normal; Denies Rhinorrhea, Erythema or Exudate Neck: Supple Respiratory: Reports Airway patent, Breath sounds clear, Breath sounds equal and Respirations nonlabored; Denies Crackles, Rhonchi, Wheezes or Retractions Cardiovascular: Reports No murmur and Tachycardia GI/: Reports Soft, Nontender, No masses and Bowel sounds normal Musculoskeletal: Reports Normal strength, ROM intact and No edema Skin: Reports Warm, Dry and Normal color; Denies Pale, Diaphoretic or Cyanotic Neurological: Reports Sensation intact, Motor intact, Cranial nerves intact, Alert and Oriented Psychiatric: Reports Affect appropriate Interpretation EKG Interpretation EKG Interpretation By: ED Physician Time of EKG #1: 00:22 Rate: Tachy (104) Rhythm: Sinus Ectopy: None [place]: NL ST Segment: Normal Radiology Interpretation Radiology Interpretation By: Radiologist Radiology Results: Negative Exam Interpreted: CXR Radiology Interpretation By: Radiologist Exam Interpreted: CT Scan Physician Notification Case Discussed Physician Notified: Dr. Rendon Time of Notification: 01:15 Comments: I discussed this pt. with Dr. Rend[facility] Physician Notified: Juve Time of Notification: 01:59 Endorsed To/Discussed With: I discussed this pt. with Juve the hospitalist, and she agrees to admit Critical Care Note Critical Care Note Total Critical Care Time (mins): 0 Course Course 05/04/23 21:25 05/04/23 20:25 Orders, Labs, Meds: Lab Review 05/04/23 05/04/23 05/04/23 20:25 20:48 20:53 WBC RBC Hgb Hct MCV MCH MCHC RDW Coeff of Petar Plt Count Immature Gran % (Auto) Neut % (Auto) Lymph % (Auto) [place] % (Auto) Eos % (Auto) Baso % (Auto) Neut # (Auto) Lymph # (Auto) [place] # (Auto) Eos # (Auto) Baso # (Auto) Immature Gran # (Auto) Puncture Site Lb Base Excess 1.7 O2 Saturation 86.9 L ABG pH 7.45 ABG pCO2 37.0 ABG pO2 50.0 L* ABG HCO3 25.7 ABG Total CO2 26.8 H Domenico Test Pos Hemoglobin 1.3 Oxyhemoglobin 86.1 L Carboxyhemoglobin 3.5 H Total Hemoglobin 14.2 O2 Delivery Device Ra FiO2 % 21.0 Sodium 140.7 Potassium 4.39 Chloride 105.2 Carbon Dioxide 28.0 Anion Gap 11.89 BUN 23.1 H Creatinine 0.81 Estimated GFR (MDRD) 95.00 BUN/Creatinine Ratio 28.51 Glucose 117.0 H Lactic Acid 0.99 Calcium 9.32 Total Bilirubin 0.65 AST 21.8 ALT 16.9 Alkaline Phosphatase 124.8 H Troponin I < 0.012 Total Protein 7.35 Albumin 3.96 Globulin 3.39 Albumin/Globulin Ratio 1.16 Procalcitonin D-Dimer Urine Color Urine Clarity Urine pH Ur Specific [place] Urine Protein Urine Glucose (UA) Urine Ketones Urine Blood Urine Nitrite Urine Bilirubin Urine Urobilinogen Ur Leukocyte Esterase Urine Microscopic RBC Urine Microscopic WBC Ur Squamous Epith Cells Amorphous Sediment Urine Bacteria SARS CoV-2 RNA Rapid EDWIN Negative 05/04/23 05/04/23 20:56 21:25 WBC 17.85 H RBC 4.53 L Hgb 13.9 L Hct 42.0 MCV 92.7 MCH 30.7 MCHC 33.1 RDW Coeff of Petar 14.1 Plt Count 266 Immature Gran % (Auto) 0.6 Neut % (Auto) 81.1 H Lymph % (Auto) 5.0 L [place] % (Auto) 13.0 H Eos % (Auto) 0.1 Baso % (Auto) 0.2 Neut # (Auto) 14.5 H Lymph # (Auto) 0.9 [place] # (Auto) 2.3 H Eos # (Auto) 0.0 Baso # (Auto) 0.0 Immature Gran # (Auto) 0.1 Puncture Site Base Excess O2 Saturation ABG pH ABG pCO2 ABG pO2 ABG HCO3 ABG Total CO2 Domenico Test Hemoglobin Oxyhemoglobin Carboxyhemoglobin Total Hemoglobin O2 Delivery Device FiO2 % Sodium Potassium Chloride Carbon Dioxide Anion Gap BUN Creatinine Estimated GFR (MDRD) BUN/Creatinine Ratio Glucose Lactic Acid Calcium Total Bilirubin AST ALT Alkaline Phosphatase Troponin I Total Protein Albumin Globulin Albumin/Globulin Ratio Procalcitonin 0.15 H D-Dimer 1180.94 H Urine Color Yellow Urine Clarity Clear Urine pH 6.0 Ur Specific [place] 1.025 Urine Protein 2+ H Urine Glucose (UA) Negative Urine Ketones 4+ Urine Blood 1+ H Urine Nitrite Negative Urine Bilirubin 2+ H Urine Urobilinogen 1.0 H Ur Leukocyte Esterase Negative Urine Microscopic RBC 0-2 Urine Microscopic WBC 0-2 Ur Squamous Epith Cells 0-2 Amorphous Sediment Trace Urine Bacteria Trace SARS CoV-2 RNA Rapid EDWIN Orders Category Date Time Status ABG DRAW REQUEST Stat CARDIO 05/04/23 20:48 Completed EKG-(ED ONLY) Stat CARDIO 05/04/23 20:48 Completed ACTIVITY .Up ad Jany CARE 05/05/23 02:19 Active NPO REMINDER: IMAGING ONCE CARE 05/04/23 23:34 Completed 2 GRAM SODIUM DIET DIETARY 05/05/23 Breakfast Ordered OXYGEN [ED APPLY O2] .ONCE EMERGENCY 05/04/23 20:48 Active ABG COOX Stat LAB 05/04/23 20:53 Completed BLOOD CULTURE Stat LAB 05/04/23 21:25 Received C-REACTIVE PROTEIN Stat LAB 05/04/23 20:25 Received CBC W/ AUTO DIFF Stat LAB 05/04/23 21:25 Completed CMP [COMPREHENSIVE METABOLIC PANEL] Stat LAB 05/04/23 20:25 Completed COVID [SARS COV-2 RNA RAPID EDWIN] Stat LAB 05/04/23 20:48 Completed D-DIMER Stat LAB 05/04/23 21:25 Completed LACTIC ACID Stat LAB 05/04/23 20:25 Completed PROCALCITONIN Stat LAB 05/04/23 21:25 Completed TROPONIN I Stat LAB 05/04/23 20:25 Completed URINALYSIS C & S IF INDICATED Stat LAB 05/04/23 20:56 Completed Acetaminophen [Tylenol] Meds 05/05/23 02:19 Active 650 mg PO Q6H PRN Enoxaparin Sodium [Lovenox] Meds 05/05/23 09:00 Active 40 mg SUBCUT DAILY Ipratropium/Albuterol Neb [Duoneb] Meds 05/04/23 20:48 Discontinued 3 ml NEB ONCE ONE Ondansetron HCl/Pf [Zofran 4 mg/2 ml] Meds 05/05/23 02:14 Active 4 mg IVP Q6H PRN Ondansetron HCl/Pf [Zofran 4 mg/2 ml] Meds 05/05/23 00:02 Discontinued 8 mg IVP ONCE STA Ondansetron HCl/Pf [Zofran 4 mg/2 ml] Meds 05/05/23 00:02 Discontinued 8 mg IVP ONCE STA Piperacillin Sodium/Tazobactam [Zosyn 3.375 gm] 3.375 Meds 05/04/23 22:24 Discontinued gm 0.9 % Sodium Chloride [Sodium Chloride 100Ml] 100 ml IV ONCE Piperacillin Sodium/Tazobactam [Zosyn 3.375 gm] 3.375 Meds 05/05/23 06:00 Act izzy gm 0.9 % Sodium Chloride [Sodium Chloride 100Ml] 100 ml IV Q6HR Sodium Chloride 0.9% [Sodium Chloride] 1,000 ml Meds 05/04/23 22:23 Discontinued IV BOLUS Sodium Chloride 0.9% [Sodium Chloride] 1,000 ml Meds 05/04/23 22:26 Discontinued IV BOLUS Sodium Chloride 0.9% [Sodium Chloride] 500 ml Meds 05/05/23 02:14 Active IV 100 mls/hr Vancomycin/Water For Inj (Peg) [Vancomycin 1.25 gm/250 Meds 05/05/23 09:00 Discontinued ml Bag] 1.25 gm in 250 ml IV DAILY Vancomycin/Water For Inj (Peg) [Vancomycin 1.25 gm/250 Meds 05/05/23 09:00 Active ml Bag] 1.25 gm in 250 ml IV Q12HR Vancomycin/Water For Inj (Peg) [Vancomycin 1.5 Gram/300 Meds 05/04/23 23:06 Discontinued ml Premix] 1.5 gm in 300 ml IV ONCE CHEST, 2 VIEWS PA & LAT Stat RADS 05/04/23 20:48 Completed CTA CHEST PE PROTOCOL Stat RADS 05/04/23 23:34 Completed Medications Generic Name Dose Route Start Last Admin Trade Name Freq PRN Reason Stop Dose Admin Acetaminophen 650 mg 05/05/23 02:19 Acetaminophen 325 Mg Tablet PO Q6H PRN Fever >101 Albuterol/Ipratropium 3 ml 05/05/23 03:03 05/05/23 03:29 Ipratropium/Albuterol Vial.Neb NEB 3 ml RTQ8H PRN Administration Wheezing Enoxaparin Sodium 40 mg 05/05/23 09:00 Enoxaparin Sodium 40 Mg/0.4 Ml Syr SUBCUT DAILY TUCKER Sodium Chloride 500 mls @ 100 mls/hr 05/05/23 02:14 05/05/23 03:21 Sodium Chloride IV 05/05/23 07:13 100 mls/hr .Q5H STA Administration VANCOMYCIN/WATER FOR INJ (PEG) 1.25 gm in 250 mls @ 250 mls/hr 05/05/23 09:00 Vancomycin 1.25 Gm/250 Ml Bag IV 05/08/23 08:59 Q12HR TUCKER Piperacillin Sod/Tazobactam 100 mls @ 100 mls/hr 05/05/23 06:00 05/05/23 05:16 Sod 3.375 gm/ Sodium Chloride IV 05/08/23 05:59 100 mls/hr Q6HR TUCKER Administration Ondansetron HCl 4 mg 05/05/23 02:14 Ondansetron Hcl/Pf 4 Mg/2 Ml Sdv IVP Q6H PRN Nausea / Vomiting Discontinued Medications Generic Name Dose Route Start Last Admin Trade Name Freq PRN Reason Stop Dose Admin Albuterol/Ipratropium 3 ml 05/04/23 20:48 05/04/23 21:02 Ipratropium/Albuterol Vial.Neb NEB 05/04/23 20:49 3 ml ONCE ONE Administration Sodium Chloride 1,000 mls @ 1,000 mls/hr 05/04/23 22:23 05/04/23 22:29 Sodium Chloride IV 05/04/23 23:22 1,000 mls/hr BOLUS STA Administration VANCOMYCIN/WATER FOR INJ (PEG) 1.25 gm in 250 mls @ 250 mls/hr 05/05/23 09:00 Vancomycin 1.25 Gm/250 Ml Bag IV 05/08/23 08:59 DAILY TUCKER Piperacillin Sod/Tazobactam 100 mls @ 100 mls/hr 05/04/23 22:24 05/04/23 22:41 Sod 3.375 gm/ Sodium Chloride IV 05/04/23 23:23 100 mls/hr ONCE ONE Administration Sodium Chloride 1,000 mls @ 1,000 mls/hr 05/04/23 22:26 05/05/23 03:14 Sodium Chloride IV 05/04/23 23:25 Not Given BOLUS STA VANCOMYCIN/WATER FOR INJ (PEG) 1.5 gm in 300 mls @ 200 mls/hr 05/04/23 23:06 05/05/23 00:44 Vancomycin 1.5 Gram/300 Ml Premix IV 05/05/23 00:35 200 mls/hr ONCE ONE Administration Ondansetron HCl 8 mg 05/05/23 00:02 05/05/23 00:09 Ondansetron Hcl/Pf 4 Mg/2 Ml Sdv IVP 05/05/23 00:03 8 mg ONCE STA Administration Ondansetron HCl 8 mg 05/05/23 00:02 05/05/23 00:09 Ondansetron Hcl/Pf 4 Mg/2 Ml Sdv IVP 05/05/23 00:03 Not Given ONCE STA Vital Signs: Temp Pulse Resp BP Pulse Ox 05/04/23 20:24 99.8 F 137 H 18 109/65 85 L Discharge Plan Discharge Patient Disposition: PLACED OBSERVATION Discharge Problem: Sepsis, Weakness generalized, Dehydration, Leukocytosis Did you review [place] EBD TEACHER for ALL controlled substances?: Not Applicable ED Provider: MAXINE HYMAN Condition: Stable
[2023-05-05] MEDS ORDERED: ZOFRAN 4 MG/2 ML IVP STA ×2 (00:02)
--- NOTE | 2023-05-05 01:02 | CT ---
EXAM: CTA CHEST HISTORY: Elevated D-dimer COMPARISON: CT scan chest 06/11/2022 FINDINGS: Postcontrast helical imaging was obtained through the thorax utilizing 2.5-mm collimation. "Sagittal and coronal reconstructions were imaged and reviewed. 3-D volume rendered images are sub mitted.. The thoracic inlet is unremarkable. There are subcentimeter mediastinal lymph nodes. Ther e is 1.8 cm right hilar lymph node. There are calcified subcarinal lymph nodes. Pneumopleural scarr ing at the apices.. Multiple small pulmonary nodules are noted. In the right upper lobe in the 3-6 mm range which merit follow-up. The ascending aorta is ectatic measuring 3.9 cm. The heart is ildefonso l in size with coronary ASVD no pericardial effusion. There is no evidence of pulmonary embolus . T here is aortic dissection involving the the distal thoracic aorta extending into the abdominal aorta to the level of the renal arteries. The celiac and SMA and renal arteries arise from the true lumen . Simple cysts are seen within the liver, left kidney and spleen.. Bone windows reveals no lytic or blastic lesions. IMPRESSION: No evidence of pulmonary embolus There is an aortic dissection originating in the distal descending thoracic aorta extending to the le paty of the renals. Small right-sided pulmonary nodules and prominent right hilar lymph node which merit follow-up at 4-m onth interval. . Results conveyed via telephone to the emergency room physician 12:58 a.m. 05/05/[address] scans are performed using dose optimization techniques as appropriate to the performed exam an d include at least one of the following: Automated exposure control, adjustment of the mA and/or kV according t o size, and the use of iterative reconstruction technique.
[2023-05-05] MEDS ORDERED: SODIUM CHLORIDE 500 ML IV STA (02:14)
[2023-05-05] MEDS ORDERED: ZOFRAN 4 MG/2 ML IVP PRN (02:14)
[2023-05-05] MEDS ORDERED: TYLENOL PO PRN (02:19)
[2023-05-05] MEDS ORDERED: DUONEB NEB PRN (03:03)
[2023-05-05] MEDS: ZOSYN 3.375 GM 3.375 GM in SODIUM CHLORIDE 100ML 100 ML IV SCH ×3 (05:16→18:19)
[2023-05-05] MEDS ORDERED: ALBUTEROL 0.083% NEB NEB PRN (07:05)
[2023-05-05 07:36] LABS: BASOPHILS % (AUTO) 0.2 % (0.0-3.0); EOSINOPHILS % (AUTO) 0.1 % (0.0-7.0); HEMATOCRIT 39.4 % (42.0-52.0); HEMOGLOBIN 12.8 g/dl (14.0-18.0); IMMATURE GRANULOCYTE # (AUTO) 0.2 (0.0-1.0); IMMATURE GRANULOCYTE % (AUTO) 0.9 % (0.0-5.0); LYMPHOCYTES # (AUTO) 1.2 K/uL (0.60-3.4); LYMPHOCYTES % (AUTO) 7.2 (10.0-50.0); MEAN CORPUSCULAR HEMOGLOBIN 30.6 pg (27.0-31.0); MEAN CORPUSCULAR HGB CONC 32.5 (31.8-35.4); MEAN CORPUSCULAR VOLUME 94.3 fl (80.0-94.0); MONOCYTES # (AUTO) 2.6 K/uL (0.4-2.0); MONOCYTES % (AUTO) 15.3 (0-10); NEUTROPHILS # (AUTO) 12.9 K/ul (2.0-6.9); NEUTROPHILS % (AUTO) 76.3 % (42.2-75.2); PLATELET COUNT 248 10^3/uL (140-440); RDW COEFFICIENT OF VARIATION 14.1 % (11.6-14.8); RED BLOOD COUNT 4.18 10^6/ul (4.70-6.10); WHITE BLOOD COUNT 16.91 K/ul (4.2-10.2)
[2023-05-05 07:41] LABS: ALANINE AMINOTRANSFERASE 16.6 U/L (0-50); ALBUMIN 3.48 g/dL (3.5-5.0); ALKALINE PHOSPHATASE 108.8 U/L (56-119); ASPARTATE AMINO TRANSFERASE 28.2 U/L (17-59); BILIRUBIN,TOTAL 0.54 mg/dL (0.2-1.3); BLOOD UREA NITROGEN 20.9 mg/dL (9-20); CALCIUM 8.52 mg/dL (8.4-10.2); CARBON DIOXIDE 28.9 mmol/L (22-30.0); CHLORIDE 106.8 mmol/L (98-107); CREATININE 0.79 mg/dL (0.60-1.10); GLUCOSE 111.5 mg/dL (74-106); POTASSIUM 4.14 mmol/L (3.5-5.1); SODIUM 139.8 mmol/L (134.5-145); TOTAL PROTEIN 6.47 g/dL (6.3-8.2)
[2023-05-05] MEDS: VANCOMYCIN 1.25 GM/250 ML BAG 1.25 GM/250 ML BAG IV SCH ×2 (08:14→20:16)
[2023-05-05] MEDS: LOVENOX SUBCUT SCH (08:18)
[2023-05-05] MEDS ORDERED: VANCOMYCIN 1.25 GM/250 ML BAG 1.25 GM/250 ML BAG IV SCH (09:00)
[2023-05-05] MEDS: DUONEB NEB SCH ×4 (09:26→20:50)
--- NOTE | 2023-05-05 09:37 | PCM ---
Date of Service Date Seen by Provider: 05/05/23 Time Seen by Provider: 09:00 Admit Day/Time Admission Date: 05/05/23 Reason for Admission Chief Complaint: SEPSIS,GENERALIZED WEAKNESS,DEHYDRATION Hospital Provider Hospital Provider: OZZIE PETE, [facility] [place] Primary Care Physician Primary Care Physician: OSCAR RENDON MD History of Present Illness History of Present Illness: 67 yo male presented to the ER with complaints of fever, weakness, and shortness of breath. Patient reports his symptoms started approximately 3-4 days ago with chills and body aches. He has a pmh of COPD and does not wear home O2. Reports he also got bit by a tick this past week as well to the L upper arm. Denies any nausea, vomiting, diarrhea, chest pain, or abdominal pain. Denies urinary symptoms. Does report productive cough with lira-brown colored sputum. In the ER, his O2 sat was found to be in the 80s and increased when 2L of O2 via NC was applied. Case Discussed With Case Discussed With: Patient's case was discussed with the ER Physicians, Dr. Queen. [facility] Medical History Aortic dissection I71.00 - Dissection of unspecified site of aorta (ICD-10) COPD (chronic obstructive pulmonary disease) J44.9 - Chronic obstructive pulmonary disease, unspecified (ICD-10) Elevated cholesterol E78.00 - Pure hypercholesterolemia, unspecified (ICD-10) Hypoglycemia E16.2 - Hypoglycemia, unspecified (ICD-10) Kidney tumor D49.519 - Neoplasm of unspecified behavior of unspecified kidney (ICD-10) Surgical History History of prostate surgery Z98.890 - Other specified postprocedural states (ICD-10) Family History FATHER Cancer BROTHER Cancer Social History Smoking and tobacco status: Current every day smoker Tobacco type: cigarettes Smoking packs per day: 2 Smoking cigarettes per day: 40.0 Years smoked: 54 Smoking pack-years: 108.00 Quit status: not considering quitting Second hand smoke exposure: No Smoking risk assessment performed: No Alcohol intake: never Substance use type: does not use Special villa needs: No Agree to transfusion: Yes Adopted: No Caregiver/support person: No Foster care: No Household members: spouse Housing: house Marital status: M Lives independently: Yes Number of children: 1 service: No alf: No Current occupational status: retired History of recent travel: No Do you think of yourself as: straight/heterosexual Current gender identity: male Seatbelt use: always Helmet use: No Drives intoxicated or rides with intoxicated 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 Water heater temperature set < 120 degrees: Yes Working smoke detector in home: Yes Fire extinguisher in home: Yes Carbon monoxide detector in home: Yes Allergies Allergies Allergy/AdvReac Type Severity Reaction Status Date / Time medrol dose pack AdvReac Diarrhea Uncoded 03/28/23 15:20 Current Medications Home Medications aspirin 81 mg tablet,delayed release 81 mg PO QDAY #90 tabs 04/12/23 [Rx Confirmed 05/04/23 Last Taken Unknown] atorvastatin 80 mg tablet 80 mg PO BEDTIME #90 tabs 04/12/23 [Rx Confirmed 05/04/23 Last Taken Unknown] budesonide-formoterol HFA 160 mcg-4.5 mcg/actuation aerosol inhaler See Rx Instructions .Route .COMPLEX #30.6 grams 04/12/23 [Rx Confirmed 05/04/23 Last Taken Unknown] hydrocodone 7.5 mg-acetaminophen 325 mg tablet 1 tab PO BID PRN Moderate Pain (Scale Score 5-6) #60 tabs 04/19/23 [Rx Confirmed 05/04/23 Last Taken Unknown] ketorolac 10 mg tablet 10 mg PO Q6H PRN pain 5 days #30 tabs 04/30/23 [Rx Confirmed 05/04/23 Last Taken Unknown] Home Acetaminophen (Acetaminophen 325 Mg Tablet) 650 mg PO Q6H PRN PRN Reason: Fever >101 Albuterol Sulfate (Albuterol Sulfate 0.083% Vial.Neb) 2.5 mg NEB RTQ4H PRN PRN Reason: Wheezing Albuterol/Ipratropium (Ipratropium/Albuterol Vial.Neb) 3 ml NEB RTQ4H TUCKER Last Admin: 05/05/23 09:26 Dose: 3 ml Enoxaparin Sodium (Enoxaparin Sodium 40 Mg/0.4 Ml Syr) 40 mg SUBCUT DAILY [facility] Last Admin: 05/05/23 08:18 Dose: 40 mg VANCOMYCIN/WATER FOR INJ (PEG) (Vancomycin 1.25 Gm/250 Ml Bag) 1.25 gm in 250 mls @ 250 mls/hr IV Q12HR TUCKER Stop: 05/08/23 08:59 Last Admin: 05/05/23 08:14 Dose: 250 mls/hr Piperacillin Sod/Tazobactam (Sod 3.375 gm/ Sodium Chloride) 100 mls @ 100 mls/hr IV Q6HR TUCKER Stop: 05/08/23 05:59 Last Admin: 05/05/23 05:16 Dose: 100 mls/hr Methylprednisolone Sodium Succinate (Methylprednisolone Sod Succ/Pf 125 Mg/2 Ml Vial) 40 mg IVP Q8HR TUCKER Ondansetron HCl (Ondansetron Hcl/Pf 4 Mg/2 Ml Sdv) 4 mg IVP Q6H PRN PRN Reason: Nausea / Vomiting Discontinued Medications Albuterol/Ipratropium (Ipratropium/Albuterol Vial.Neb) 3 ml NEB ONCE ONE Stop: 05/04/23 20:49 Last Admin: 05/04/23 21:02 Dose: 3 ml Albuterol/Ipratropium (Ipratropium/Albuterol Vial.Neb) 3 ml NEB RTQ8H PRN PRN Reason: Wheezing Last Admin: 05/05/23 03:29 Dose: 3 ml Sodium Chloride (Sodium Chloride) 1,000 mls @ 1,000 mls/hr IV BOLUS STA Stop: 05/04/23 23:22 Last Admin: 05/04/23 22:29 Dose: 1,000 mls/hr VANCOMYCIN/WATER FOR INJ (PEG) (Vancomycin 1.25 Gm/250 Ml Bag) 1.25 gm in 250 mls @ 250 mls/hr IV DAILY TUCKER Stop: 05/08/23 08:59 Piperacillin Sod/Tazobactam (Sod 3.375 gm/ Sodium Chloride) 100 mls @ 100 mls/hr IV ONCE ONE Stop: 05/04/23 23:23 Last Admin: 05/04/23 22:41 Dose: 100 mls/hr Sodium Chloride (Sodium Chloride) 1,000 mls @ 1,000 mls/hr IV BOLUS STA Stop: 05/04/23 23:25 Last Admin: 05/05/23 03:14 Dose: Not Given VANCOMYCIN/WATER FOR INJ (PEG) (Vancomycin 1.5 Gram/300 Ml Premix) 1.5 gm in 300 mls @ 200 mls/hr IV ONCE ONE Stop: 05/05/23 00:35 Last Admin: 05/05/23 00:44 Dose: 200 mls/hr Sodium Chloride (Sodium Chloride) 500 mls @ 100 mls/hr IV .Q5H STA Stop: 05/05/23 07:13 Last Admin: 05/05/23 03:21 Dose: 100 mls/hr Ondansetron HCl (Ondansetron Hcl/Pf 4 Mg/2 Ml Sdv) 8 mg IVP ONCE STA Stop: 05/05/23 00:03 Last Admin: 05/05/23 00:09 Dose: 8 mg Ondansetron HCl (Ondansetron Hcl/Pf 4 Mg/2 Ml Sdv) 8 mg IVP ONCE STA Stop: 05/05/23 00:03 Last Admin: 05/05/23 00:09 Dose: Not Given Review of Systems Constitutional: Reports Fever, Chills and Weakness Head: Reports Normocephalic and Atraumatic Eyes: Reports No symptoms Ears: Reports No symptoms Nose: Reports No symptoms Mouth: Reports No symptoms Throat: Reports No symptoms Cardiovascular: Reports No symptoms Respiratory: Reports Cough (productive) and Shortness of air Gastrointestinal: Reports No symptoms Genitourinary: Reports No Symptoms Musculoskeletal: Reports No symptoms Endocrine: Reports No symptoms Hematology: Reports No symptoms Immunology: Reports No symptoms Neurological: Reports No symptoms Psychiatric: Reports No symptoms Physical examination Most Recent Vital Signs: Most Recent Vital Signs Temperature 99.4 F 05/05/23 05:44 Temperature Source Oral 05/05/23 05:44 Temperature Source Oral 05/04/23 20:24 Pulse Rate 92 05/05/23 05:44 Respiratory Rate 20 05/05/23 05:44 Blood Pressure 101/57 L 05/05/23 05:44 Blood Pressure Mean 71 05/05/23 05:44 Blood Pressure Right Arm 107/63 05/05/23 02:57 Blood Pressure Location Right Arm 05/05/23 05:44 Blood Pressure Position Supine 05/05/23 05:44 O2 Sat by Pulse Oximetry 96 05/05/23 09:23 Oxygen Delivery Method Nasal Cannula 05/05/23 09:23 Oxygen Flow Rate 3 05/05/23 09:23 Height 5 ft 9.5 in 05/05/23 02:57 Weight 159 lb 9.6 oz 05/05/23 02:57 Telemetry Type Remote Telemetry 05/05/23 07:00 Telemetry Monitoring Continues 05/05/23 07:00 Telemetry Heart Rate 88 05/05/23 07:00 Telemetry SPO2 92 L 06/10/22 16:06 EKG DE Interval 0.16 05/05/23 07:00 EKG QRS Interval 0.08 05/05/23 07:00 Telemetry Strip Reading NSR 05/05/23 07:00 Appearance: Positive No Apparent Distress, Alert and Oriented x3 and Ill- Appearing Skin: Positive Warm and Good Turgor HEENT: Positive Normocephalic and Atraumatic Neck: Positive Supple and Midline Trachea Chest/Lungs: Positive Symmetrical With Equal Breath Sounds, Clear to Auscultation Bilaterally (diminished) and Good Air Movement all 4 Lung T[place]lor Heart: Positive RRR and Pulses Normal GI/: Positive Soft, Nontender, Bowel Sounds Normal, No Distention and No Organomegaly Musculoskeletal: Positive Not Examined Extremities: Positive Intact Peripheral Pulses and Stable Joints Without Laxity Neurological: Positive Sensation Intact, Motor intact, Reflexes Intact, Alert, Oriented and Muscle Strength 5/5 in Upper and Lower Extremities Bilaterally Psychiatric: Positive Oriented x4, Appropriate Mood, Appropriate Affect, Intact Memory, Good Short-Term Recall, Good Long-Term Recall, Normal Judgement and Nor mal Insight Labs This Visit Labs This Visit: Labs This Visit 05/04/23 05/04/23 05/04/23 20:25 20:48 20:53 WBC RBC Hgb Hct MCV MCH MCHC RDW Coeff of Petar Plt Count Immature Gran % (Auto) Neut % (Auto) Lymph % (Auto) Millard % (Auto) Eos % (Auto) Baso % (Auto) Neut # (Auto) Lymph # (Auto) Millard # (Auto) Eos # (Auto) Baso # (Auto) Immature Gran # (Auto) Puncture Site Lb Base Excess 1.7 O2 Saturation 86.9 L ABG pH 7.45 ABG pCO2 37.0 ABG pO2 50.0 L* ABG HCO3 25.7 ABG Total CO2 26.8 H Domenico Test Pos Hemoglobin 1.3 Oxyhemoglobin 86.1 L Carboxyhemoglobin 3.5 H Total Hemoglobin 14.2 O2 Delivery Device Ra FiO2 % 21.0 Sodium 140.7 Potassium 4.39 Chloride 105.2 Carbon Dioxide 28.0 Anion Gap 11.89 BUN 23.1 H Creatinine 0.81 Estimated GFR (MDRD) 95.00 BUN/Creatinine Ratio 28.51 Glucose 117.0 H Lactic Acid 0.99 Calcium 9.32 Total Bilirubin 0.65 AST 21.8 ALT 16.9 Alkaline Phosphatase 124.8 H Troponin I < 0.012 Total Protein 7.35 Albumin 3.96 Globulin 3.39 Albumin/Globulin Ratio 1.16 Procalcitonin D-Dimer Urine Color Urine Clarity Urine pH Ur Specific Athena Urine Protein Urine Glucose (UA) Urine Ketones Urine Blood Urine Nitrite Urine Bilirubin Urine Urobilinogen Ur Leukocyte Esterase Urine Microscopic RBC Urine Microscopic WBC Ur Squamous Epith Cells Amorphous Sediment Urine Bacteria SARS CoV-2 RNA Rapid EDWIN Negative 05/04/23 05/04/23 05/05/23 20:56 21:25 07:22 WBC 17.85 H 16.91 H RBC 4.53 L 4.18 L Hgb 13.9 L 12.8 L Hct 42.0 39.4 L MCV 92.7 94.3 H MCH 30.7 30.6 MCHC 33.1 32.5 RDW Coeff of Petar 14.1 14.1 Plt Count 266 248 Immature Gran % (Auto) 0.6 0.9 Neut % (Auto) 81.1 H 76.3 H Lymph % (Auto) 5.0 L 7.2 L Millard % (Auto) 13.0 H 15.3 H Eos % (Auto) 0.1 0.1 Baso % (Auto) 0.2 0.2 Neut # (Auto) 14.5 H 12.9 H Lymph # (Auto) 0.9 1.2 Millard # (Auto) 2.3 H 2.6 H Eos # (Auto) 0.0 0.0 Baso # (Auto) 0.0 0.0 Immature Gran # (Auto) 0.1 0.2 Puncture Site Base Excess O2 Saturation ABG pH ABG pCO2 ABG pO2 ABG HCO3 ABG Total CO2 Domenico Test Hemoglobin Oxyhemoglobin Carboxyhemoglobin Total Hemoglobin O2 Delivery Device FiO2 % Sodium 139.8 Potassium 4.14 Chloride 106.8 Carbon Dioxide 28.9 Anion Gap 8.24 BUN 20.9 H Creatinine 0.79 Estimated GFR (MDRD) 98.00 BUN/Creatinine Ratio 26.45 Glucose 111.5 H Lactic Acid Calcium 8.52 Total Bilirubin 0.54 AST 28.2 ALT 16.6 Alkaline Phosphatase 108.8 Troponin I Total Protein 6.47 Albumin 3.48 L Globulin 2.99 Albumin/Globulin Ratio 1.16 Procalcitonin 0.15 H 0.16 H D-Dimer 1180.94 H Urine Color Yellow Urine Clarity Clear Urine pH 6.0 Ur Specific Athena 1.025 Urine Protein 2+ H Urine Glucose (UA) Negative Urine Ketones 4+ Urine Blood 1+ H Urine Nitrite Negative Urine Bilirubin 2+ H Urine Urobilinogen 1.0 H Ur Leukocyte Esterase Negative Urine Microscopic RBC 0-2 Urine Microscopic WBC 0-2 Ur Squamous Epith Cells 0-2 Amorphous Sediment Trace Urine Bacteria Trace SARS CoV-2 RNA Rapid EDWIN Imaging Imaging: EXAM: TWO-VIEW CHEST RADIOGRAPH. FINDINGS: The heart is normal in size. Pulmonary vascularity is within normal limits. No focal airspace opacity, pneumothorax, or pleural effusion is seen. Mild multilevel degenerative disc disease is present in the mid and lower thoracic spine IMPRESSION: No acute cardiopulmonary findings. EXAM: CTA CHEST FINDINGS: Postcontrast helical imaging was obtained through the thorax utilizing 2.5-mm collimation. "Sagittal and coronal reconstructions were imaged and reviewed. 3-D volume rendered images are submitted.. The thoracic inlet is unremarkable. There are subcentimeter mediastinal lymph nodes. There is 1.8 cm right hilar lymph node. There are calcified subcarinal lymph nodes. Pneumopleural scarring at the apices.. Multiple small pulmonary nodules are noted. In the right upper lobe in the 3-6 mm range which merit follow-up. The ascending aorta is ectatic measuring 3.9 cm. The heart is normal in size with coronary ASVD no pericardial effusion. There is no evidence of pulmonary embolus . There is aortic dissection involving the the distal thoracic aorta extending into the abdominal aorta to the level of the renal arteries. The celiac and SMA and renal arteries arise from the true lumen. Simple cysts are seen within the liver, left kidney and spleen.. Bone windows reveals no lytic or blastic lesions. IMPRESSION: No evidence of pulmonary embolus There is an aortic dissection originating in the distal descending thoracic aorta extending to the level of the renals. Small right-sided pulmonary nodules and prominent right hilar lymph node which merit follow-up at 4-month interval. . Results conveyed via telephone to the emergency room physician 12:58 a.m. 05/05/2023 Review Statement Review Statement: I have independently reviewed and interpreted the labs/EKGs/imaging that were ordered by the ER provider. I have reviewed all outside records that are available currently in our EMR including imaging/notes/labs from previous visits. Plan Plan: 1. Sepsis, unknown origin - chest x-ray and UA negative, blood cultures pending, vancomycin and zosyn started in ER, 1L NS given in ER, NS continued at 100mL/hr, checking for tick-borne illness due to recent bite history, elevated procal - trend 2. Acute Hypoxic Respiratory Failure in the setting of COPD Exacerbation - receiving vanc and zosyn, nebs, steroids, wean off O2 as tolerated 3. Aortic dissection - chronic, unchanged since February, monitored by Dr. Coon 4. Hyperlipidemia - chronic, continue home medications DVT Prophylaxis: Lovenox Time Spent: Greater than 80 minutes spent with patient, 50% of the time spent with this patient was devoted to counseling and coordination of care. [facility] Plannin minutes spent discussing advance care planning. Smoking Cessation: 5 minutes spent discussing smoking cessation. Disposition: DNI Admit to: Med/Surg Observation Discussed Plan of Care with Dr. Maria G Rendon. Medications Medication Orders: Medications Ordered Category Date Time Status Acetaminophen [Tylenol] Meds 05/05/23 02:19 Active 650 mg PO Q6H PRN Albuterol Sulfate 0.083% Neb [Albuterol 0.083% Neb] Meds 05/05/23 07:05 Active 2.5 mg NEB RTQ4H PRN Enoxaparin Sodium [Lovenox] Meds 05/05/23 09:00 Active 40 mg SUBCUT DAILY Ipratropium/Albuterol Neb [Duoneb] Meds 05/05/23 10:00 Active 3 ml NEB RTQ4H Methylprednisolone Sod Succ/Pf [Solu-Medrol 125 mg] Meds 05/05/23 08:30 Active 40 mg IVP Q8HR Ondansetron HCl/Pf [Zofran 4 mg/2 ml] Meds 05/05/23 02:14 Active 4 mg IVP Q6H PRN Piperacillin Sodium/Tazobactam [Zosyn 3.375 gm] 3.375 Meds 05/05/23 06:00 Active gm 0.9 % Sodium Chloride [Sodium Chloride 100Ml] 100 ml IV Q6HR Vancomycin/Water For Inj (Peg) [Vancomycin 1.25 gm/250 Meds 05/05/23 09:00 Active ml Bag] 1.25 gm in 250 ml IV Q12HR
[2023-05-05] MEDS: SOLU-MEDROL 125 MG IVP SCH ×3 (09:58→20:15)
[2023-05-05] MEDS ORDERED: TORADOL PO PRN (11:29)
[2023-05-05] MEDS ORDERED: NORCO 7.5-325 PO PRN (11:29)
[2023-05-05] MEDS: SODIUM CHLORIDE 1,000 ML IV SCH (18:22)
[2023-05-05] MEDS: SYMBICORT 160-4.5 MCG INHALER IH SCH (18:40)
[2023-05-05] MEDS: NICODERM 21 MG TD SCH (20:16)
[2023-05-05] MEDS ORDERED: LIPITOR PO SCH (21:00)
[2023-05-06] MEDS: ZOSYN 3.375 GM 3.375 GM in SODIUM CHLORIDE 100ML 100 ML IV SCH ×3 (00:19→13:00)
[2023-05-06] MEDS: DUONEB NEB SCH ×4 (01:20→14:14)
[2023-05-06 05:16] LABS: BASOPHILS % (AUTO) 0.2 % (0.0-3.0); HEMATOCRIT 37.3 % (42.0-52.0); HEMOGLOBIN 11.9 g/dl (14.0-18.0); IMMATURE GRANULOCYTE # (AUTO) 0.2 (0.0-1.0); IMMATURE GRANULOCYTE % (AUTO) 1.4 % (0.0-5.0); LYMPHOCYTES # (AUTO) 0.7 K/uL (0.60-3.4); LYMPHOCYTES % (AUTO) 5.8 (10.0-50.0); MEAN CORPUSCULAR HEMOGLOBIN 30.4 pg (27.0-31.0); MEAN CORPUSCULAR HGB CONC 31.9 (31.8-35.4); MEAN CORPUSCULAR VOLUME 95.4 fl (80.0-94.0); MONOCYTES # (AUTO) 0.5 K/uL (0.4-2.0); MONOCYTES % (AUTO) 4.4 (0-10); NEUTROPHILS # (AUTO) 10.8 K/ul (2.0-6.9); NEUTROPHILS % (AUTO) 88.2 % (42.2-75.2); PLATELET COUNT 268 10^3/uL (140-440); RDW COEFFICIENT OF VARIATION 14.3 % (11.6-14.8); RED BLOOD COUNT 3.91 10^6/ul (4.70-6.10); WHITE BLOOD COUNT 12.26 K/ul (4.2-10.2)
[2023-05-06 05:38] LABS: ALANINE AMINOTRANSFERASE 41.1 U/L (0-50); ALBUMIN 3.45 g/dL (3.5-5.0); ALKALINE PHOSPHATASE 120.9 U/L (56-119); ASPARTATE AMINO TRANSFERASE 55.2 U/L (17-59); BILIRUBIN,TOTAL 0.34 mg/dL (0.2-1.3); BLOOD UREA NITROGEN 21.7 mg/dL (9-20); CALCIUM 9.25 mg/dL (8.4-10.2); CARBON DIOXIDE 27.8 mmol/L (22-30.0); CHLORIDE 109.5 mmol/L (98-107); CREATININE 0.77 mg/dL (0.60-1.10); GLUCOSE 218.7 mg/dL (74-106); POTASSIUM 3.72 mmol/L (3.5-5.1); SODIUM 142.1 mmol/L (134.5-145); TOTAL PROTEIN 6.33 g/dL (6.3-8.2)
[2023-05-06] MEDS: SOLU-MEDROL 125 MG IVP SCH ×2 (06:25→12:57)
[2023-05-06] MEDS: SODIUM CHLORIDE 1,000 ML IV SCH ×2 (06:30→14:41)
[2023-05-06] MEDS: SYMBICORT 160-4.5 MCG INHALER IH SCH (07:23)
[2023-05-06] MEDS ORDERED: ASPIRIN EC PO SCH (08:30)
[2023-05-06] MEDS: NICODERM 21 MG TD SCH (08:55)
[2023-05-06] MEDS: LOVENOX SUBCUT SCH (08:58)
[2023-05-06] MEDS: VANCOMYCIN 1.25 GM/250 ML BAG 1.25 GM/250 ML BAG IV SCH (08:59)
[2023-05-06] MEDS ORDERED: SYMBICORT 160-4.5 MCG INHALER IH SCH (09:00)
--- NOTE | 2023-05-06 12:09 | DCSUM ---
Admission Date Admission Date: 05/05/23 Discharge Date Discharge Date: 05/06/23 Admission Diagnosis Admission Diagnosis: 1. Sepsis, unknown origin 2. Acute Hypoxic Respiratory Failure in the setting of COPD Exacerbation 3. Aortic dissection 4. Hyperlipidemia Discharge Diagnosis Discharge Diagnosis: 1. Sepsis, unknown origin, possibly tick borne illness - ruled out, cultures negative 2. Acute Hypoxic Respiratory Failure in the setting of COPD Exacerbation 3. COPD Exacerbation - Improved 4. Tick bite 5. Aortic dissection - chronic, unchanged since February, monitored by Dr. Coon 6. Hyperlipidemia - chronic, continue home medications Hospital Provider Hospital Provider: [facility] Primary Care Physician: OSCAR RENDON MD Summary of History and Physical Summary of History and Physical: 67 yo male presented to the ER with complaints of fever, weakness, and shortness of breath. Patient reports his symptoms started approximately 3-4 days ago with chills and body aches. He has a pmh of COPD and does not wear home O2. Reports he also got bit by a tick this past week as well to the L upper arm. Denies any nausea, vomiting, diarrhea, chest pain, or abdominal pain. Denies urinary symptoms. Does report productive cough with lira-brown colored sputum. In the ER, his O2 sat was found to be in the 80s and increased when 2L of O2 via NC was applied. Hospital Course Subjective: Patient had a CTA which was negative for PE, pneumonia. Patient did continue to require 2 L of oxygen. Suspect he likely has been having oxygen saturation in the upper 80s at baseline. Patient's oxygen was removed and had a drop to 86% prior to the three-step test. He had no difference in symptoms. Oxygen reapplied. Home O2 set up prior to discharge. Patient was treated with Zosyn and vancomycin. No specific etiology for symptoms. UA negative CTA negative. Blood cultures are negative so far. Labs overall improving. He feels great today and is requested multiple times to go home. Concern for underlying tickborne illness due to recent tick bite. Labs are still pending at this time it could take up to a week at least. We will continue steroids due to his COPD but will also treat with doxycycline to cover for tickborne illness as well. Patient is agreeable to this and will follow-up closely with PCP for those results. Red flags and when to return discussed. Appearance: Pleasant, No Apparent Distress, Alert and Well-appearing HEENT: MMM and Supple CVS: No Murmur, No Rubs and No Gallop Abdomen: Soft, Non-Tender and No Distention Respiratory: No Accessory Muscle Use Extremities: No Edema Additional Findings: SKIN: Left upper arm - tick bite noted, scabbing over, no surrounding cellulitis/target lesions Vital Signs: Most Recent Vital Signs Temperature 96.1 F L 05/06/23 10:00 Temperature Source Temporal Artery Scan 05/06/23 10:00 Temperature Source Oral 05/04/23 20:24 Pulse Rate 72 05/06/23 10:00 Respiratory Rate 19 05/06/23 10:00 Blood Pressure 109/52 L 05/06/23 10:00 Blood Pressure Mean 71 05/06/23 10:00 Blood Pressure Right Arm 107/63 05/05/23 02:57 Blood Pressure Location Right Arm 05/06/23 10:00 Blood Pressure Position Sitting 05/06/23 10:00 O2 Sat by Pulse Oximetry 98 05/06/23 10:00 Oxygen Delivery Method Nasal Cannula 05/06/23 10:00 Oxygen Flow Rate 0.5 05/06/23 10:00 Height 5 ft 9.5 in 05/05/23 02:57 Weight 159 lb 9.6 oz 05/05/23 02:57 Telemetry Type Remote Telemetry 05/06/23 07:00 Telemetry Monitoring Continues 05/06/23 07:00 Telemetry Heart Rate 89 05/06/23 07:00 Telemetry SPO2 95 05/06/23 07:00 EKG IA Interval 0.16 05/06/23 07:00 EKG QRS Interval 0.08 05/06/23 07:00 Telemetry Strip Reading NSR 05/06/23 07:00 Imaging: EXAM: CTA CHEST HISTORY: Elevated D-dimer COMPARISON: CT scan chest 06/11/2022 FINDINGS: Postcontrast helical imaging was obtained through the thorax utilizing 2.5-mm collimation. "Sagittal and coronal reconstructions were imaged and reviewed. 3-D volume rendered images are submitted.. The thoracic inlet is unremarkable. There are subcentimeter mediastinal lymph nodes. There is 1.8 cm right hilar lymph node. There are calcified subcarinal lymph nodes. Pneumopleural scarring at the apices.. Multiple small pulmonary nodules are noted. In the right upper lobe in the 3-6 mm range which merit follow-up. The ascending aorta is ectatic measuring 3.9 cm. The heart is normal in size with coronary ASVD no pericardial effusion. There is no evidence of pulmonary embolus . There is aortic dissection involving the the distal thoracic aorta extending into the abdominal aorta to the level of the renal arteries. The celiac and SMA and renal arteries arise from the true lumen. Simple cysts are seen within the liver, left kidney and spleen.. Bone windows reveals no lytic or blastic lesions. IMPRESSION: No evidence of pulmonary embolus There is an aortic dissection originating in the distal descending thoracic aorta extending to the level of the renals. Small right-sided pulmonary nodules and prominent right hilar lymph node which merit follow-up at 4-month interval. . EXAM: TWO-VIEW CHEST RADIOGRAPH. HISTORY: Shortness of breath.. COMPARISON: 06/10/2022. FINDINGS: The heart is normal in size. Pulmonary vascularity is within normal limits. No focal airspace opacity, pneumothorax, or pleural effusion is seen. Mild multilevel degenerative disc disease is present in the mid and lower thoracic spine IMPRESSION: No acute cardiopulmonary findings. Lab Results Last 24 Hours: 05/06/23 05:11 WBC 12.26 H RBC 3.91 L Hgb 11.9 L Hct 37.3 L MCV 95.4 H MCH 30.4 MCHC 31.9 RDW Coeff of Petar 14.3 Plt Count 268 Immature Gran % (Auto) 1.4 Neut % (Auto) 88.2 H Lymph % (Auto) 5.8 L [place] % (Auto) 4.4 Eos % (Auto) 0.0 Baso % (Auto) 0.2 Neut # (Auto) 10.8 H Lymph # (Auto) 0.7 [place] # (Auto) 0.5 Eos # (Auto) 0.0 Baso # (Auto) 0.0 Immature Gran # (Auto) 0.2 Sodium 142.1 Potassium 3.72 Chloride 109.5 H Carbon Dioxide 27.8 Anion Gap 8.52 BUN 21.7 H Creatinine 0.77 Estimated GFR (MDRD) 100.00 BUN/Creatinine Ratio 28.18 Glucose 218.7 H D Calcium 9.25 Total Bilirubin 0.34 AST 55.2 D ALT 41.1 Alkaline Phosphatase 120.9 H Total Protein 6.33 Albumin 3.45 L Globulin 2.88 Albumin/Globulin Ratio 1.19 Procalcitonin 0.09 H Discharge Instructions Discharge Planning: Discharge Planning > [address] Aisha Rendon. Discharge Medications: Medications at Discharge (Home Meds & RX) aspirin 81 mg tablet,delayed release 81 mg PO QDAY #90 tabs 04/12/23 atorvastatin 80 mg tablet 80 mg PO BEDTIME #90 tabs 04/12/23 budesonide-formoterol HFA 160 mcg-4.5 mcg/actuation aerosol inhaler See Rx Instructions .Route .COMPLEX #30.6 grams 04/12/23 hydrocodone 7.5 mg-acetaminophen 325 mg tablet 1 tab PO BID PRN Moderate Pain (Scale Score 5-6) #60 tabs 04/19/23 ketorolac 10 mg tablet 10 mg PO Q6H PRN pain 5 days #30 tabs 04/30/23 Discharge Plan Discharge Discharge Orders: Discharge Patient (ONCE); Ordered 05/06/23 Ordered By: ELIANA LOCKE Activity Restrictions/Additional Instructions: DISCHARGE TO HOME F/U WITH PCP TO REVIEW [facility]: DRU PREDNISONE AND DOXYCYCLINE AVOID THE SUN WHILE ON DOXY HOME O2 SET UP YOU HAVE A FOLLOW UP WITH DR. RENDON'S OFFICE ON May AT 10:40AM. SHOULD YOU HAVE ANY QUESTIONS OR NEED TO RESCHEDULE YOU CAN CONTACT THEIR OFFICE AT [phone]. YOU HAVE BEEN [facility] WITH [facility], THEIR PHONE NUMBER IS [phone]. Instructions: Dehydration (DC), COPD (Chronic Obstructive Pulmonary Disease) (DC) Care Plan Goals: Problem: Fluid Volume Deficit Goal: Maintain fluid and electrolyte balance Instructions: Monitor and maintain hydration status Follow fluid and dietary restrictions Patient Disposition: HOME SELF-CARE Prescriptions: New doxycycline monohydrate 100 mg capsule 100 mg PO BID 14 Days Qty: 28 0RF prednisone 20 mg tablet 20 mg PO BID 5 Days Qty: 10 0RF Continued aspirin 81 mg tablet,delayed release (DR/EC) 81 mg PO QDAY Qty: 90 1RF atorvastatin 80 mg tablet 80 mg PO BEDTIME Qty: 90 1RF budesonide-formoterol 160-4.5 mcg/actuation HFA aerosol inhaler See Rx Instructions .ROUTE .COMPLEX Qty: 30.6 0RF Dose Instruction: INHALE 2 PUFFS BY MOUTH TWICE DAILY Rx Instructions: INHALE 2 PUFFS BY MOUTH TWICE DAILY ketorolac 10 mg tablet 10 mg PO Q6H PRN (Reason: pain) 5 Days Qty: 30 0RF hydrocodone-acetaminophen 7.5-325 mg tablet 1 tab PO BID PRN (Reason: Moderate Pain (Scale Score 5-6)) Qty: 60 0RF Did you review [place] [employer] for ALL controlled substances?: Not Applicable Discussed opioids are addictive and Narcan is available by prescription or from pharmacy.: No Condition: Stable
[2023-05-06 14:28] VITALS: BP 119/59; PULSE 103; RESP 16; TEMP 96.4
[2023-05-06] MEDS ORDERED: NICODERM 21 MG TD SCH (18:30)
[2023-05-10 02:20] LABS: IGG P18 AB Absent (.); IGG P23 AB Absent (.); IGG P28 AB Absent (.); IGG P30 AB Absent (.); IGG P39 AB Absent (.); IGG P41 AB Absent (.); IGG P45 AB Absent (.); IGG P58 AB Absent (.); IGG P66 AB Absent (.); IGG P93 AB Absent (.); IGM P23 AB Absent (.); IGM P39 AB Absent (.); IGM P41 AB Absent (.); LYME IGG WB INTERP Negative (.); LYME IGM WB INTERP Negative (.)
== END 2023-05-06 14:45 | disposition home or self-care (01) ==
LOC: ED 20:22 → MEDSURG B 20:22
PROVIDERS: ADMIT Hospitalist; ATTEND Physician Assistant
DX: E78.5 Hyperlipidemia, unspecified; S40.862A Insect bite (nonvenomous) of left upper arm, initial encounter; M62.81 Muscle weakness (generalized); R91.1 Solitary pulmonary nodule; A41.9 Sepsis, unspecified organism; E86.0 Dehydration; W57.XXXA Bitten or stung by nonvenomous insect and other nonvenomous arthropods, initial encounter; J44.1 Chronic obstructive pulmonary disease with (acute) exacerbation; D72.829 Elevated white blood cell count, unspecified; J96.01 Acute respiratory failure with hypoxia; I71.012 Dissection of descending thoracic aorta; Z20.822 Contact with and (suspected) exposure to COVID-19; F17.210 Nicotine dependence, cigarettes, uncomplicated